=== PATIENT | male | born 2000 | race Caucasian/White ===

== ENCOUNTER 2021-11-03 10:27 | Emergency (ER) | payer OTHER, SELFPAY ==
[2021-11-03 10:37] VITALS: BP 113/73; PULSE 79; TEMP 37; O2SAT 98; BMI 25.7
--- NOTE | 2021-11-03 12:00 | CRLHL7_ITS ---
For Patients: As a result of the Century Cures Act, medical imaging exams and procedure reports are released immediately into your electronic medical record. You may view this report before your referring provider. If you have questions, please contact your health care provider. Indication: Left testicular pain and swelling. Palpable abnormality on the left. Technique: Sonography of the scrotum and its contents was performed. Doppler was also performed. Comparison: There are no prior studies for comparison Findings: The right testis measures 4.5 x 2.0 x 3.1 centimeters. The left testis measures 4.5 x 2.0 x 2.8 centimeters. No testicular mass. Normal Doppler flow involving both testes without evidence of hyperemia or torsion. There are 2 small epididymal head cysts on the right. There is a 4 millimeter and a 6 millimeter epididymal head cyst. The left epididymis is hypervascular and enlarged and heterogeneous. There may be a discrete focal mass at the epididymal head measuring 9 x 8 x 10 millimeters. I favor that all of these findings are due to significant epididymitis including the masslike area. There is no hydrocele or varicocele or definite scrotal abscess Recommend that the patient return in no greater than 14 days after treatment for presumptive epididymitis to ensure that the left epididymis returns to normal appearance Impression: 1. There are findings of left epididymitis. An masslike heterogeneous area is noted at the head of the epididymis which I favor is focal epididymitis rather than a true mass. A follow-up scan in 10 days to 2 weeks is advised to reassess the epididymis after treatment. 2. The testes appear normal. No testicular mass. No evidence of torsion. Dictated by Long Brunson MD @ 11/03/2021 1:29:58 PM (Electronically Signed)
--- NOTE | 2021-11-03 12:17 | ED.MALEGU ---
HPI - Male Genitourinary General Date Seen: 11/03/21 Chief complaint: Skin/Abscess/Foreign Body Stated complaint: Testicular lump Time Seen by Provider: 11/03/21 11:01 Source: patient and RN notes reviewed Mode of arrival: ambulatory Limitations: no limitations History of Present Illness HPI Narrative: This 21-year-old male is coming in with left testicular pain and swelling. He started noting symptoms at work yesterday. He denies any fevers or chills, has not tried any Tylenol or ibuprofen. He is here with his significant other and when asked about any history or concern of STIs he states he just wants to figure this out. Denies any urinary symptoms, no penile drainage. No associated abdominal pain, no nausea or vomiting, no change in bowel habits. He has never had anything like this before. He states he is up-to-date on his childhood immunizations. There is no inguinal pain with this, pain does not radiate anywhere. MD Complaint: testicle pain and testicle swelling Onset (ago): day(s) Duration: constant and progressively worsening Location: left testicle Severity: severe Related Data Sexually active: Yes Previous Rx's Medication Instructions Recorded doxycycline monohydrate 100 mg 100 mg PO BID #20 cap 11/03/21 capsule Allergies Allergy/AdvReac Type Severity Reaction Status Date / Time No Known Drug Allergies Allergy Verified 11/03/21 10:37 Review of Systems Status of ROS: Reports: 6 or more systems reviewed and unremarkable except as noted in History and below Exam Const: Vital Signs, click to edit/add: Vital Signs - 24 hr 11/03/21 10:37 Temperature 98.6 F Pulse Rate [Right Pulse Oximeter] 79 Blood Pressure [Ri ght Upper Arm] 113/73 Pulse Oximetry 98 Documenting provider has reviewed patient's vital signs: yes Common normals: no apparent distress, oriented x3, no limitations, healthy appearing and alert General appearance: cooperative and comfortable (Until I examined his left testicle which is quite painful for him) Nutritional appearance: thin HENMT: Common normals: normocephalic, head/scalp atraumatic and hearing grossly normal bilaterally Head and scalp: normocephalic and atraumatic Eye: Common normals: PERRL, EOMs intact bilaterally, conjunctivae normal and no scleral icterus Conjunctiva: conjunctiva(e) normal Pupil: PERRL Resp: Common normals: normal respiratory effort, no retractions, no use of accessory muscles and clear to auscultation bilaterally Auscultation: clear to auscultation bilaterally Cardio: Common normals: regular rate, regular rhythm, S1 normal heart sound, S2 normal heart sound, no gallops, no clicks and no murmurs Rate: regular rate Rhythm: regular rhythm Heart sounds: S1 normal and S2 normal GI: Common normals: Normal to inspection, nondistended, normoactive bowel sounds present, soft to palpation, non-tender, no hepatosplenomegaly and no masses Palpation: soft and no hepatosplenomegaly : Penis: normal penis and circumcised Meatus: meatus normal Scrotum: testes descended bilaterally Testes: testicular lie normal, testicular swelling (Left side with swelling along epididymis) and testicular tenderness (Seems to be the epididymis) Testicular tenderness laterality: left Neuro: Common normals: oriented x3 and gait normal Sensorium/orientation: alert Speech: speech normal Course Course Hospital Course: We are going to give the patient IM Toradol for some pain management. I will order a scrotal ultrasound, we will get a urinalysis as well as a urine GC and chlamydia. Will be getting a CBC and basic metabolic panel, C-reactive protein. Unfortunately due to the volume and acuity in the ER, he will have to go back out to the lobby and we will attempt to expedite this process but there are no rooms for him back in the ER. He does understand that and agrees with plan as outlined. This clinically seems like epididymitis in the testicle itself does not seem to be affected but we will get a scrotal ultrasound to fully differentiate. Reevaluation(s) Reevaluation #1: Patient was able to provide urine specimen(s) just now. Have reviewed with him that the ultrasound is consistent with epididymitis and went over etiologies of this. We will be giving him 500 mg IM Rocephin and discharged on oral doxycycline. Have reviewed with him that the radiologist did recommend [place] ultrasound of the scrotum to ensure resolution of the epididymal findings in 2 weeks time. Questions were answered. Time: 14:33 Vital Signs Vital signs: Initial Vital Signs Temperature 98.6 F 11/03/21 10:37 Temperature Source Temporal Artery Scan 11/03/21 10:37 Pulse Rate 79 11/03/21 10:37 Pulse Rhythm 11/03/21 10:37 Blood Pressure 113/73 11/03/21 10:37 Blood Pressure Mean 86 11/03/21 10:37 Blood Pressure Position Sitting 11/03/21 10:37 Pulse Oximetry 98 11/03/21 10:37 Oxygen Delivery Method 11/03/21 10:37 Vital Signs Temperature 98.6 F 11/03/21 10:37 Pulse Rate 79 11/03/21 10:37 Blood Pressure 113/73 11/03/21 10:37 Pulse Oximetry 98 11/03/21 10:37 Temperature 98.6 F 11/03/21 10:37 Pulse Rate 79 11/03/21 10:37 Blood Pressure 113/73 11/03/21 10:37 Pulse Oximetry 98 11/03/21 10:37 MDM - Male Genitourinary Lab Data Attestation: I reviewed the patient's lab results. Lab results narrative: Awaiting urine tests, urine GC and chlamydia not likely to be back in a reasonable timeframe and will allow patient discharged on appropriate treatment. Labs: Lab Results 11/03/21 11/03/21 Range/Units 12:25 12:25 WBC 9.00 (4.50-11.00) K/uL RBC 5.17 (4.30-5.90) m/uL Hgb 14.8 (13.5-17.5) gm/dL Hct 42.7 (37.0-53.0) % MCV 83 (80-100) fL MCH 29 (26-34) pg MCHC 35 (32-36) gm/dL RDW Coeff of Alix 12.2 (11.5-15.5) % Plt Count 162 (140-440) K/uL Neut % (Auto) 66.2 (42.0-72.0) % Lymph % (Auto) 16.7 L (20-44) % Archer % (Auto) 10.4 (0.0-11.0) % Eos % (Auto) 6.2 (0.0-7.0) % Baso % (Auto) 0.4 (0.0-3.0) % Neut # (Auto) 5.95 (1.7-7.0) K/uL Lymph # (Auto) 1.50 (0.90-2.90) K/uL Archer # (Auto) 0.90 (0.00-0.90) K/UL Eos # (Auto) 0.56 H (0.00-0.50) K/uL Baso # (Auto) 0.04 (0.00-0.30) K/uL Abs Immat Gran (auto) 0.01 (0.00-0.30) K/uL Sodium 137 (135-149) mmol/L Potassium 4.2 (3.6-5.1) mmol/L Chloride 102 (96-114) mmol/L Carbon Dioxide 29 (20-32) mmol/L BUN 15 (5-24) mg/dL Creatinine 1.1 (0.5-1.5) mg/dL Estimated Creat Clear 124.55 Estimated GFR 99 ml/min Glucose 108 (60-115) mg/dL Calcium 9.4 (8.4-10.6) mg/dL C-Reactive Protein < 0.5 L (0.5-1.0) mg/dL Imaging Data Scrotal ultrasound: Attestation: I have reviewed the pertinent imaging results. Radiologist's impression: Patient: PROMISE FAUST Facility:?[facility] Patient ID:?[id number] Site Patient ID:?[id number]. Site :?[id number] Study:?US Testicle -11/03/2021 1:04:12 PM Ordering Physician:Dong Monaco Final Report: Indication: Left testicular pain and swelling. Palpable abnormality on the left. Technique: Sonography of the scrotum and its contents was performed. Doppler was also performed. Comparison: There are no prior studies for comparison Findings: The right testis measures 4.5 x 2.0 x 3.1 centimeters. The left testis measures 4.5 x 2.0 x 2.8 centimeters. No testicular mass. Normal Doppler flow involving both testes without evidence of hyperemia or torsion. There are 2 small epididymal head cysts on the right. There is a 4 millimeter and a 6 millimeter epididymal head cyst. The left epididymis is hypervascular and enlarged and heterogeneous. There may be a discrete focal mass at the epididymal head measuring 9 x 8 x 10 millimeters. I favor that all of these findings are due to significant epididymitis including the masslike area. There is no hydrocele or varicocele or definite scrotal abscess Recommend that the patient return in no greater than 14 days after treatment for presumptive epididymitis to ensure that the left epididymis returns to normal appearance Impression: 1. There are findings of left epididymitis. An masslike heterogeneous area is noted at the head of the epididymis which I favor is focal epididymitis rather than a true mass. A follow-up scan in 10 days to 2 weeks is advised to reassess the epididymis after treatment. 2. The testes appear normal. No testicular mass. No evidence of torsion. Dictated by Long Brunson MD @ 11/03/2021 1:29:58 PM (Electronic Signature) Critical Care Time Critical Care Time Critical Care Time: No Discharge Plan Discharge Clinical Impression: Acute epididymitis Patient Disposition: Home, Self-Care Condition: Stable Instructions: Epididymitis (ED) Additional Instructions: Start oral antibiotics today, please get them from the pharmacy and take as prescribed. Do need to complete them. Recommend scrotal support with firmer fitting underwear as needed. Tylenol and/or ibuprofen as needed for pain management, follow bottle directions for dosing. It is recommended that you have a repeat scrotal ultrasound in 2 weeks time for the radiologist to ensure resolution of the left epididymis swelling. Note provided to be off work for the next 2 days for your comfort. Activity Level: Activity as Tolerated Discharge Diet: Regular Prescriptions: New doxycycline monohydrate 100 mg capsule 100 mg PO BID Qty: 20 0RF Stand Alone Forms: [employer] Info Instructions
[2021-11-03] MEDS: KETOROLAC 30 MG/ML inj IM (12:23)
--- NOTE | 2021-11-03 12:23 | ED.NURSE ---
Toradol per order to right deltoid. Lab with patient for draw. Patient unable to provide urine sample yet. Patient to u/s after lab draw.
[2021-11-03 12:33] LABS: Basophils Absolute Auto 0.04 K/uL (0.00-0.30); Basophils Percent Auto 0.4 % (0.0-3.0); Eosinophils Absolute Auto 0.56 K/uL (0.00-0.50); Eosinophils Percent Auto 6.2 % (0.0-7.0); Hematocrit 42.7 % (37.0-53.0); Hemoglobin* 14.8 gm/dL (13.5-17.5); Immature Granulocytes Abs Auto 0.01 K/uL (0.00-0.30); Lymphocytes Percent Auto 16.7 % (20-44); Mean Corpuscular HGB Conc 35 gm/dL (32-36); Mean Corpuscular Hemoglobin 29 pg (26-34); Mean Corpuscular Volume 83 fL (80-100); Monocytes Percent Auto 10.4 % (0.0-11.0); Neutrophils Absolute Auto 5.95 K/uL (1.7-7.0); Neutrophils Percent Auto 66.2 % (42.0-72.0); Platelet Count* 162 K/uL (140-440); RDW Coefficient of Variation % 12.2 % (11.5-15.5); Red Blood Count 5.17 m/uL (4.30-5.90)
[2021-11-03 12:43] LABS: Slide Review Reflex No
[2021-11-03 12:53] LABS: Chloride* 102 mmol/L (96-114)
[2021-11-03 12:54] LABS: Potassium* 4.2 mmol/L (3.6-5.1); Sodium* 137 mmol/L (135-149)
[2021-11-03 12:56] LABS: Creatinine* 1.1 mg/dL (0.5-1.5); Est. Creatinine Clearance* 124.55; Estimated Glomerular Filt Rate 99 ml/min
[2021-11-03 12:57] LABS: Blood Urea Nitrogen* 15 mg/dL (5-24); Carbon Dioxide* 29 mmol/L (20-32); Glucose* 108 mg/dL (60-115)
[2021-11-03 12:58] LABS: Calcium* 9.4 mg/dL (8.4-10.6)
[2021-11-03 13:10] LABS: C Reactive Protein* < 0.5 mg/dL (0.5-1.0)
[2021-11-03] MEDS: cefTRIAXone 500 MG VIAL IM (14:51)
[2021-11-03] MEDS: LIDOCAINE 1% 5 ml (pf) 5 ML VIAL 1 ML IM (14:51)
[2021-11-03 15:20] LABS: Appearance Urine Cloudy (Clear); Bilirubin Urine Negative (Negative); Blood Urine Negative (Negative); Color Urine Yellow (Yellow); Glucose Urine Negative (Negative); Ketones Urine Negative (Negative); Leukocyte Esterase Urine 1+ (Negative); Nitrite Urine Negative (Negative); Protein Urine Negative (Negative); Urobilinogen Urine 0.2 (0.2-1.0); pH Urine 7.5 (5.0-8.5)
[2021-11-03 17:03] LABS: Chlamydia DNA Amplified* DETECTED (No Detected); GC DNA Amplified* NOT DETECTED (No Detected)
== END 2021-11-03 15:00 | disposition home or self-care (01) ==
PROVIDERS: Emergency Provider Family Medicine
DX: N45.1 Epididymitis (principal)
CPT/HCPCS: 36415; 76870; 80048; 81001; 85025; 86140; 87086; 87491; 87591; 93976; 96372; 99284; J0696; J1885

== ENCOUNTER 2023-02-21 00:45 | Emergency (ER) | payer OTHER, SELFPAY ==
[2023-02-21 00:50] VITALS: BP 125/76; PULSE 80; RESP 18; TEMP 36.8; O2SAT 99; BMI 24.6
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
[2023-02-21] MEDS: PIPERACILLIN/TAZOBACTAM 3.375 GM in 0.9 % SODIUM CHLORIDE Mini-bag 100 ML IVPB (01:01)
[2023-02-21 01:31] VITALS: BP 118/74; PULSE 79; RESP 18; TEMP 36.7; O2SAT 99
[2023-02-21 01:36] VITALS: BP 118/74; PULSE 79; RESP 18; TEMP 36.7
== END 2023-02-21 01:37 | disposition home or self-care (01) ==
PROVIDERS: Emergency Provider Family Medicine
DX: L03.113 Cellulitis of right upper limb (principal)
CPT/HCPCS: 96365; 99283; J2543

== ENCOUNTER 2023-03-29 18:30 | Emergency (ER) | payer OTHER, SELFPAY ==
--- NOTE | 2023-03-29 18:45 | CRLHL7_ITS ---
For Patients: As a result of the Century Cures Act, medical imaging exams and procedure reports are released immediately into your electronic medical record. You may view this report before your referring provider. If you have questions, please contact your health care provider. INDICATION: Blurred vision. TECHNIQUE: CT images foramen magnum to vertex were obtained without contrast. Multiplanar reconstructions. FINDINGS: No evidence of acute intracranial hemorrhage or mass effect. Preservation of lara-white interface no evidence of focal infarct or mass effect no abnormal extra cerebral fluid collections. No posterior fossa hemorrhage or mass effect. The orbits, suprasellar cistern calvarium and skull base are unremarkable. IMPRESSION: Negative CT brain without contrast. No evidence of acute intracranial abnormality. Please note that all CT scans at this facility use dose modulation, iterative reconstruction, and/or weight-based dosing when appropriate to reduce radiation dose to as low as reasonably achievable. Dictated by Jeremy Judd MD @ 03/29/2023 7:27:43 PM (Electronically Signed)
[2023-03-29 18:46] VITALS: BP 135/76; PULSE 101; RESP 16; TEMP 36.4; O2SAT 99; BMI 25.6
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
[2023-03-29 19:16] LABS: Basophils Absolute Auto 0.06 K/uL (0.00-0.30); Basophils Percent Auto 0.6 % (0.0-3.0); Eosinophils Absolute Auto 0.18 K/uL (0.00-0.50); Eosinophils Percent Auto 1.8 % (0.0-7.0); Hemoglobin* 13.8 gm/dL (13.5-17.5); Immature Granulocytes Abs Auto 0.01 K/uL (0.00-0.30); Immature Granulocytes Pct Auto 0.1 %; Lymphocytes Percent Auto 18.8 % (20-44); Mean Corpuscular HGB Conc 35 gm/dL (32-36); Mean Corpuscular Hemoglobin 28 pg (26-34); Mean Corpuscular Volume 81 fL (80-100); Monocytes Percent Auto 8.6 % (0.0-11.0); Neutrophils Absolute Auto 6.99 K/uL (1.7-7.0); Neutrophils Percent Auto 70.1 % (42.0-72.0); Platelet Count* 182 K/uL (140-440); Red Blood Count 4.94 m/uL (4.30-5.90); White Blood Count* 9.97 K/uL (4.50-11.00)
[2023-03-29 19:18] LABS: Slide Review Reflex No
[2023-03-29 19:28] LABS: Chloride* 103 mmol/L (96-114); Potassium* 4.1 mmol/L (3.6-5.1); Sodium* 139 mmol/L (135-149)
[2023-03-29 19:31] LABS: Anion Gap 10 mEq/L (7-15); Blood Urea Nitrogen* 16 mg/dL (5-24); Carbon Dioxide* 26 mmol/L (20-32); Est. Creatinine Clearance* 139.66; Estimated Glomerular Filt Rate 110 ml/min
[2023-03-29 19:32] LABS: Calcium* 9.7 mg/dL (8.4-10.6); Ethanol* < 0.01 % (0.01-0.03); Glucose* 95 mg/dL (60-115)
[2023-03-29 19:42] LABS: Appearance Urine Clear (Clear); Bilirubin Urine Negative (Negative); Blood Urine Negative (Negative); Color Urine Yellow (Yellow); Glucose Urine Negative (Negative); Ketones Urine Negative (Negative); Leukocyte Esterase Urine Negative (Negative); Nitrite Urine Negative (Negative); Protein Urine Negative (Negative); Urobilinogen Urine 0.2 (0.2-1.0)
[2023-03-29 19:52] LABS: Amphetamine Screen Urine Negative (Negative); Barbiturate Screen Urine Negative (Negative); Benzodiazepines Screen Urine Negative (Negative); Cannabinoid Screen Urine Negative (Negative); Cocaine Screen Urine Negative (Negative); Methadone Screen Urine Negative (Negative); Methamphetamines Screen Urine Negative (Negative); Opiate Screen Urine Negative (Negative); Oxycodone Screen Urine Negative (Negative); Phencyclidine Screen Urine Negative (Negative); Tricyclic Antidepressant Urine Negative (Negative)
[2023-03-29 19:53] LABS: RBC Urine 0-2 (0-2); Squamous Epithelial Cell Urine Few (None-Few); WBC Urine 0-2 (0-5)
== END 2023-03-29 20:43 | disposition home or self-care (01) ==
PROVIDERS: Emergency Provider Family Medicine
DX: S09.90XA Unspecified injury of head, initial encounter (principal); F07.81 Postconcussional syndrome; W22.8XXA Striking against or struck by other objects, initial encounter
CPT/HCPCS: 36415; 70450; 80048; 80306; 81001; 82077; 85025; 95992; 99284

== ENCOUNTER 2023-04-05 23:00 | Emergency (ER) | payer OTHER, SELFPAY ==
[2023-04-05 23:15] VITALS: BP 114/76; PULSE 84; RESP 16; TEMP 36.6; O2SAT 97; BMI 25.6
--- NOTE | 2023-04-06 00:14 | ED.GENADULT ---
HPI - General Adult General Chief complaint: Unspecified Complaint, Adult Stated complaint: Trouble Breathing Time Seen by Provider: 04/06/23 00:02 Source: patient Mode of arrival: ambulatory Limitations: no limitations History of Present Illness HPI narrative: 22-year-old male with no chronic medical problems presents to the emergency department with generalized body aches for the past 12-14 hours and onset of achy pain in his chest that radiated to his left arm and shoulder while driving today. It is intermittent, worse with taking a deep breath. Nonexertional. No palpitations, dizziness, syncope or other related symptoms with this. He is not truly short of breath but rather feels as though he has increased pain with taking a deep breath. No history of pneumothorax, no trauma or injury. There is no cough or hemoptysis. He is not running a fever he did not try taking any Tylenol, ibuprofen or any other interventions to help with his pain. No known exposures to any illness, no pertinent travel. Past medical history benign per his report no major long-term health problems. No long-term medications, nonsmoker. Denies any illicit drugs. ROS notable for the generalized and chest symptoms as described above, otherwise denies times 12 systems. Related Data Home Medications Medication Instructions Recorded Confirmed No Known Home Medications 03/29/23 03/29/23 Allergies Allergy/AdvReac Type Severity Reaction Status Date / Time No Known Drug Allergies Allergy Verified 02/21/23 00:53 [facility] Medical History No significant past medical history Surgical History No significant past surgical history Social History Smoking Status: Never smoker Second hand tobacco smoke exposure: No How often do you have a drink containing alcohol: never How often do you have six or more drinks on one occasion: Never AUDIT-C Alcohol total score: 0 Non-prescribed substance use: denies use Exam Const: Vital Signs, click to edit/add: Vital Signs - 24 hr 04/05/23 23:15 Temperature 97.9 F Pulse Rate [Pulse Oximeter] 84 Respiratory Rate 16 Blood Pressure [Ri ght Upper Arm] 114/76 Pulse Oximetry 97 Oxygen Delivery Me thod Room Air Documenting provider has reviewed patient's vital signs: yes Common normals: no apparent distress and alert General appearance: cooperative Other: Mildly anxious but certainly in no visible respiratory distress. HENMT: Common normals: normocephalic and head/scalp atraumatic Head and scalp: normocephalic and atraumatic Face and sinus: normal facial exam Mouth: oral and palatal mucosa normal Throat: posterior oropharynx normal Eye: Common normals: conjunctivae normal General eye: normal appearance of both eyes Conjunctiva: conjunctiva(e) normal Neck & C-Spine: Common normals: full ROM and no lymphadenopathy Resp: Common normals: normal respiratory effort, no use of accessory muscles and clear to auscultation bilaterally Effort & inspection: able to speak in complete sentences and symmetric chest movement Auscultation: clear to auscultation bilaterally Other: Mild tenderness to palpation of right sternal costal joints. Does reproduce pain he describes Cardio: Common normals: regular rate, regular rhythm, S1 normal heart sound, S2 normal heart sound and no murmurs Rate: regular rate Rhythm: regular rhythm Heart sounds: S1 normal and S2 normal GI: Common normals: soft to palpation, non-tender and no masses Palpation: soft Extremity: Common normals: normal to inspection and no pedal edema Neuro: Sensorium/orientation: alert Speech: speech normal Motor exam: no movement abnormalities noted Psych: Appearance: grossly normal Attitude: withdrawn Insight: fair Judgement: fair Skin: Common normals: no rashes or lesions noted General skin exam: no rashes or lesions noted Course Course ED Course: generalized body aches with episode of chest tightness at rest, reproducible with palpation. No signs of any significant cardiopulmonary abnormality on exam or vital signs. Recommended EKG. Recommended viral swab to look for etiology of muscle aches, suspect influenza as we are having multiple cases Raynaud. Will give ibuprofen 800 mg p.o. x1 for symptomatic care while we await results. Reevaluation(s) Time of Reevaluation #1: 01:42 Reevaluation #1: Patient reports improvement in shoulder discomfort and chest discomfort on ibuprofen. Oxygen saturations have remained normal. Viral swabs reviewed and all normal. Suspect viral syndrome, discussed sensitivity of swabs in early phase of illness. Do not see any signs of severe cardiopulmonary disease do not recommend further workup at this time. Recommended symptomatic care with Tylenol and ibuprofen, watchful waiting. Work note given for today. Alarm symptoms reviewed would warrant ED presentation. He verbalized understanding and agreement Vital Signs Vital signs: Initial Vital Signs Temperature 97.9 F 04/05/23 23:15 Temperature Source Temporal Artery Scan 04/05/23 23:15 Pulse Rate 84 04/05/23 23:15 Pulse Rhythm Regular 04/05/23 23:15 Respiratory Rate 16 04/05/23 23:15 Blood Pressure 114/76 04/05/23 23:15 Blood Pressure Mean 88 04/05/23 23:15 Blood Pressure Position Sitting 04/05/23 23:15 Pulse Oximetry 97 04/05/23 23:15 Oxygen Delivery Method Room Air 04/05/23 23:15 Vital Signs Temperature 97.9 F 04/05/23 23:15 Pulse Rate 84 04/05/23 23:15 Respiratory Rate 16 04/05/23 23:15 Blood Pressure 114/76 04/05/23 23:15 Pulse Oximetry 97 04/05/23 23:15 Oxygen Delivery Method Room Air 04/05/23 23:15 Temperature 97.9 F 04/05/23 23:15 Pulse Rate 84 04/05/23 23:15 Respiratory Rate 16 04/05/23 23:15 Blood Pressure 114/76 04/05/23 23:15 Pulse Oximetry 97 04/05/23 23:15 Oxygen Delivery Method Room Air 04/05/23 23:15 Medications Administered Medications: Discontinued Medications Generic Name Dose Route Start Last Admin Trade Name Freq PRN Reason Stop Dose Admin Ibuprofen 800 mg 04/06/23 00:14 04/06/23 00:28 Ibuprofen 400 Mg Tablet PO 04/06/23 00:15 800 mg ONCE ONE Administration Medical Decision Making Lab Data Lab results reviewed: Yes I reviewed the patient's lab results Labs: Lab Results 04/06/23 Range/Units 00:14 SARS-CoV-2 (PCR) Negative SARS-CoV-2 (Negative) Influenza Type A (PCR) Negative PCR FLU A (Negative) Influenza Type B (PCR) Negative PCR FLU B (Negative) RSV (PCR) Negative PCR RSV (Negative) ECG Data Attestation: I personally reviewed and interpreted this ECG as follows: Prior ECG tracings: not available for review Interpretation: Normal sinus rhythm, rate 73. Normal intervals, normal axis. No significant ST or T-wave abnormalities. Normal R-wave progression. Abnormal EKG. Discharge Plan Discharge Clinical Impression: Myalgia Patient Disposition: Home w/ Parent or Adult Condition: Improved Instructions: Viral Syndrome (ED) Additional Instructions: as we discussed, your chest pain and shortness of breath do not seem to be related to any dangerous problems with her heart or lungs. Your EKG looks normal. Your oxygen levels and breathing rate and physical exam are all reassuring. I suspect that your body aches and discomfort are related to a viral illness, likely influenza. Unfortunately, the swabs are not perfectly accurate and can miss early cases. I recommend Tylenol 1000 mg every 6 hours as needed for discomfort and or ibuprofen 600 mg every 6 hours. you may take ibuprofen again at 7:00 a.m.. He may take Tylenol as soon as you get home. You are medically cleared to return to work Tomorrow. Activity Level: Activity as Tolerated Discharge Diet: Regular Prescriptions: No Action No Known Home Medications Follow Up/Referrals: Provider,Not a Local [Primary Care Provider] - Stand Alone Forms: [employer] Info Instructions
[2023-04-06] MEDS: IBUPROFEN 400 MG TABLET 800 MG PO (00:28)
[2023-04-06 01:12] LABS: PCR FLU A Negative PCR FLU A (Negative); PCR FLU B Negative PCR FLU B (Negative); PCR RSV Negative PCR RSV (Negative)
[2023-04-06 01:27] LABS: SARS PCR* Negative SARS-CoV-2 (Negative)
== END 2023-04-06 01:51 | disposition home or self-care (01) ==
PROVIDERS: Emergency Provider Family Medicine
DX: M79.10 Myalgia, unspecified site (principal)
CPT/HCPCS: 87631; 99283; 99284; A9270

== ENCOUNTER 2023-04-19 17:04 | Observation (INO) | payer BC, SELFPAY ==
[2023-04-19] VITALS (13 sets, daily range): BP systolic 111–118; BP diastolic 50–73; PULSE 74–107; RESP 16; TEMP 36.5–37.4; O2SAT 94–98; BMI 25.0; BMI 24.4
--- NOTE | 2023-04-19 17:44 | CRLHL7_ITS ---
For Patients: As a result of the Century Cures Act, medical imaging exams and procedure reports are released immediately into your electronic medical record. You may view this report before your referring provider. If you have questions, please contact your health care provider. INDICATION: Pharyngitis, muffled voice. TECHNIQUE: CT soft tissue of the neck was acquired with 90 cc Isovue 370 contrast. COMPARISON: None available. FINDINGS: Skull base: Unremarkable. Pharynx/Larynx/Trachea: Epiglottis is normal. Airway is patent. Enlargement of bilateral palatine tonsils, right greater left. There is an intra tonsillar hypodense rim enhancing collection measuring greater than simple fluid attenuation within the right palatine tonsil. This collection measures 1.8 x 0.8 x 1.2 cm (series 3, image 37). No peritonsillar fluid collection is seen. Salivary glands: Unremarkable. Thyroid gland: Unremarkable. No significant nodules. Lymph nodes: Scattered subcentimeter bilateral cervical lymph nodes. Vessels: Unremarkable for age. Bones: Unremarkable for age. Lung apices: Unremarkable. IMPRESSION: Enlarged bilateral palatine tonsils with findings of right intra tonsillar phlegmon/developing abscess measuring up to 1.8 cm. Please note that all CT scans at this facility use dose modulation, iterative reconstruction, and/or weight-based dosing when appropriate to reduce radiation dose to as low as reasonably achievable. Dictated by Liss Lopez MD @ 04/19/2023 7:38:38 PM (Electronically Signed)
--- NOTE | 2023-04-19 17:50 | ED.GENADULT ---
HPI - General Adult General Date Seen: 04/19/23 Chief complaint: Sore Throat Stated complaint: Throat problems Time Seen by Provider: 04/19/23 17:10 History of Present Illness HPI narrative: This is a 22-year-old generally healthy male accompanied to the ER today by his girlfriend for evaluation of sore throat. He was seen here in the ER on 04/06 for body aches, thought to be a viral illness and got better from that. About a week ago, on roughly April 12 or he developed symptoms of sore throat. He has had sore throat since then getting steadily worse over time. He has also had fatigue and body aches. No cough. No stuffy nose. No trouble breathing. Because of pain in his throat he is starting to develop a muffled voice. He has had difficulty and pain with swallowing so has not been eating. He has not been drinking very much either. He has not had any fever. Last night his girlfriend was looking at his tonsil that and noticed that there was ?white pus? coming out of them and also noted a little bit of bleeding from both tonsils. They made appointment to see the [facility]. They went to their appointment today. After seeing the provider, they were sent here to the ER today to have a neck CT scan with concern for possible abscess (I think a peritonsillar abscess? , but patient and his girlfriend are not sure). Strep PCR from [facility] was negative. No other tests or x-rays were performed. Related Data Home Medications Medication Instructions Recorded Confirmed No Known Home Medications 03/29/23 04/19/23 Allergies Allergy/AdvReac Type Severity Reaction Status Date / Time No Known Drug Allergies Allergy Verified 04/19/23 18:27 [facility] Medical History No significant past medical history Surgical History No significant past surgical history Social History (Updated 04/19/23 @ 21:49 by Caden Cortés MD) Narrative: He presents with his girlfriend. He does not smoke. He occasionally drinks alcohol, less than once a week, no recreational drug use. 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 What is your current living situation?: I presently have a place to live Problems where you live: no known problems Problems where you live details: none In the past 12 months, utilities in danger of being shut off: no In past 12 months, lack of transportation kept you from medical appts, meetings, work, or getting things needed for daily living: no In the past 12 mos, have been you worried that your food would run out before you had money to buy more?: never true In the past 12 mos, the food you bought just didn't last and you didn't have money to buy more?: never true Highest level of school completed/degree received: high school graduate Smoking Status: Never smoker Second hand tobacco smoke exposure: No How often do you have a drink containing alcohol: monthly or less Alcohol type: beer How many standard drinks containing alcohol do you have on a typical day: 7 to 9 How often do you have six or more drinks on one occasion: Less than monthly AUDIT-C Alcohol total score: 5 Non-prescribed substance use: denies use Caffeine: Yes (energy drink, pop) How often does anyone, including family, friends and others, physically hurt you: never How often does anyone, including family, friends and others, insult or talk down to you: never How often does anyone, including family, friends and others, threaten you with harm: never How often does anyone, including family, friends and others, scream or curse at you: never service: No Exam Narrative: Exam Narrative: Constitutional: Appears well-developed and well-nourished. Alert. Conversant but his voice is somewhat muffled. He relies on his girlfriend provide a lot of his history.. Non toxic. HENT: Head: Atraumatic. Nose: Nose normal. Mouth/Throat: Oral mucosa is clear and moist. no trismus. Pharynx is beefy and erythematous bilaterally. Both tonsils are enlarged and both tonsils appear to be symmetrically pushing on the uvula. I do not see any clear midline shift of the uvula or any definitive unilateral peritonsillar abscess. Both tonsils appear to have erythema, exudates, but no active bleeding.. Eyes: Conjunctivae normal. EOM normal. Pupils equal, round, and reactive to light. No scleral icterus. Neck: Normal range of motion. Neck supple. No tracheal deviation present. Cardiovascular: Normal rate, regular rhythm. No gallop. No friction rub. No murmur heard. Symmetric radial artery pulses Pulmonary/Chest: Effort normal. No stridor. No respiratory distress. No wheezes. No rales. No rhonchi . No tenderness. Abdominal: Soft. Bowel sounds normal. No distension. No mass. No tenderness. No rebound. No guarding. No definite palpable splenomegaly. Musculoskeletal: RUE: Normal range of motion. No tenderness. No deformity LUE: Normal range of motion. No tenderness. No deformity RLE: Normal range of motion. No edema. No tenderness. No deformity LLE: Normal range of motion. No edema. No tenderness. No deformity Lymph: Bilateral posterior and anterior cervical adenopathy. Neurological: Alert and oriented to person, place, and time. Normal strength. CN II-VII intact. No sensory deficit. GCS eye subscore is 4. GCS verbal subscore is 5. GCS motor subscore is 6. Normal coordination Skin: Skin is warm and dry. No rash noted. No pallor. Normal capillary refill. Psychiatric: Normal mood. Normal affect. Const: Vital Signs, click to edit/add: Vital Signs - 24 hr 04/19/23 17:09 04/19/23 19:07 04/19/23 19:15 Temperature 99.3 F Pulse Rate 81 78 Pulse Rate [Right Pulse Oximeter] 107 H Respiratory Rate 16 Blood Pressure Blood Pressure [Ri ght Upper Arm] 118/73 Pulse Oximetry 97 97 [facility] 04/19/23 19:30 04/19/23 19:45 04/19/23 19:57 Temperature Pulse Rate 74 90 Pulse Rate [Right Pulse Oximeter] 90 Respiratory Rate 16 Blood Pressure Blood Pressure [Ri ght Upper Arm] 112/50 L Pulse Oximetry 96 98 97 [facility] 04/19/23 19:57 04/19/23 20:00 04/19/23 20:15 Temperature Pulse Rate 86 91 85 Pulse Rate [Right Pulse Oximeter] Respiratory Rate Blood Pressure 112/50 L Blood Pressure [Ri ght Upper Arm] Pulse Oximetry 97 98 97 [facility] 04/19/23 20:32 04/19/23 20:45 04/19/23 21:00 Temperature Pulse Rate 88 95 97 Pulse Rate [Right Pulse Oximeter] Respiratory Rate Blood Pressure Blood Pressure [Ri ght Upper Arm] Pulse Oximetry 97 94 96 Oxygen Delivery Me thod Course Vital Signs Vital signs: Initial Vital Signs Respiratory Effort Normal, Spontaneous 04/19/23 17:06 Respiratory Depth Normal 04/19/23 17:06 Respiratory Pattern Normal 04/19/23 17:06 Vital Signs Temperature 99.3 F 04/19/23 17:09 Pulse Rate 107 H 04/19/23 17:09 Respiratory Rate 16 04/19/23 17:09 Blood Pressure 118/73 04/19/23 17:09 Pulse Oximetry 97 04/19/23 17:09 Oxygen Delivery Method Room Air 04/19/23 17:09 Temperature 97.7 F 04/19/23 23:55 Pulse Rate 90 04/19/23 23:55 Respiratory Rate 16 04/19/23 23:55 Blood Pressure 113/55 L 04/19/23 23:55 Pulse Oximetry 97 04/19/23 23:55 Oxygen Delivery Method Room Air 04/19/23 23:55 Medications Administered Medications: Generic Name Dose Route Start Last Admin Trade Name Freq PRN Reason Stop Dose Admin Lactated Ringer's 1,000 mls @ 125 mls/hr 04/19/23 21:25 04/19/23 22:18 Lactated Ringers 1000 Ml IV 125 mls/hr .Q8H NADIR Administration Sodium Chloride 5 ml 04/19/23 22:19 04/19/23 22:20 Sodium Chloride 0.9 % (Flush) 10 Ml Syringe IVF 5 ml .FLUSH PRN Administration Discontinued Medications Generic Name Dose Route Start Last Admin Trade Name Freq PRN Reason Stop Dose Admin Dexamethasone 10 mg 04/19/23 17:44 04/19/23 18:22 Dexamethasone 4 Mg/Ml Vial IV 04/19/23 17:45 10 mg ONCE ONE Administration Sodium Chloride 1,000 mls @ 1,000 mls/hr 04/19/23 17:46 04/19/23 19:19 0.9 % Sodium Chloride 1000 Ml IV 04/19/23 18:45 Infused .Q1H NADIR Infusion Ampicillin Sodium/Sulbactam 100 mls @ 200 mls/hr 04/19/23 19:38 04/19/23 20:30 Sodium 3 gm/ Sodium Chloride IVPB 04/19/23 19:39 Infused ONCE ONE Infusion Ketorolac Tromethamine 15 mg 04/19/23 17:44 04/19/23 18:22 Ketorolac 15 Mg/Ml Inj IVP 04/19/23 17:45 15 mg ONCE ONE Administration Medical Decision Making MDM Narrative Medical decision making narrative: 22-year-old previously healthy male presenting to the ER today from [facility] for evaluation of pharyngitis and possible suspicion for peritonsillar abscess. On my exam he does have beefy erythema of both tonsils and both tonsils seem to be compressing the uvula but no definite asymmetry. Although tonsils are quite swollen and he has a slightly muffled voice, airways patent. No stridor. No trismus. No concern for impending airway collapse. Laboratory workup shows leukocytosis. CT scan of his neck is obtained and does show a possible small phlegmon or early abscess within the right tonsil. Started on IV steroids and IV Unasyn. Discussed with ENT, who recommends we admit for IV antibiotics and steroids. ENT will consult in the morning. If not improving, made perform I and D. He subsequently the patient's labs also came back positive for mono. LFTs also mildly abnormal likely consistent with mononucleosis syndrome. Unclear if mono may have initially triggered the pharyngitis which is now bacterially superinfected. At this point he had already CV is 1st dose of Unasyn. He would be at risk for developing an ampicillin rash with mono. Discussed with admitting hospitalist, Dr. Cortés, who will change future antibiotic therapy, likely to clindamycin. Lab Data Labs: Lab Results 04/19/23 Range/Units 18:08 WBC 12.09 H (4.50-11.00) K/uL RBC 4.96 (4.30-5.90) m/uL Hgb 13.6 (13.5-17.5) gm/dL Hct 39.9 (37.0-53.0) % MCV 80 (80-100) fL MCH 27 (26-34) pg MCHC 34 (32-36) gm/dL RDW Coeff of Alix 12.3 (11.5-15.5) % Plt Count 204 (140-440) K/uL Neut % (Auto) 33.4 L (42.0-72.0) % Lymph % (Auto) 55.8 H (20-44) % Jones % (Auto) 10.2 (0.0-11.0) % Eos % (Auto) 0.3 (0.0-7.0) % Baso % (Auto) 0.2 (0.0-3.0) % Neut # (Auto) 4.00 (1.7-7.0) K/uL Lymph # (Auto) 6.70 H (0.90-2.90) K/uL Jones # (Auto) 1.20 H (0.00-0.90) K/UL Eos # (Auto) 0.00 (0.00-0.50) K/uL Baso # (Auto) 0.00 (0.00-0.30) K/uL Abs Immat Gran (auto) 0.00 (0.00-0.30) K/uL Imm/Tot Granulo (auto) 0.1 % Sodium 138 (135-149) mmol/L Potassium 4.0 (3.6-5.1) mmol/L Chloride 101 (96-114) mmol/L Carbon Dioxide 30 (20-32) mmol/L Anion Gap 7 (7-15) mEq/L BUN 15 (5-24) mg/dL Creatinine 0.9 (0.5-1.5) mg/dL Estimated Creat Clear 155.18 Estimated GFR 125 ml/min Glucose 104 (60-115) mg/dL Calcium 9.4 (8.4-10.6) mg/dL Total Bilirubin 0.6 (0.1-1.5) mg/dL AST 163 H (12-35) U/L ALT 291 H (4-50) U/L Alkaline Phosphatase 85 (40-150) U/L Total Protein 8.4 H (6.0-8.3) g/dL Albumin 4.8 (3.3-5.0) g/dL Monoscreen POSITIVE A (Negative) Imaging Data CT neck soft: Attestation: I have reviewed the pertinent imaging results. Radiologist's impression: IMPRESSION: Enlarged bilateral palatine tonsils with findings of right intra tonsillar phlegmon/developing abscess measuring up to 1.8 cm.
[2023-04-19 18:16] LABS: Basophils Percent Auto 0.2 % (0.0-3.0); Eosinophils Percent Auto 0.3 % (0.0-7.0); Hematocrit 39.9 % (37.0-53.0); Hemoglobin* 13.6 gm/dL (13.5-17.5); Immature Granulocytes Pct Auto 0.1 %; Lymphocytes Percent Auto 55.8 % (20-44); Mean Corpuscular HGB Conc 34 gm/dL (32-36); Mean Corpuscular Hemoglobin 27 pg (26-34); Mean Corpuscular Volume 80 fL (80-100); Monocytes Percent Auto 10.2 % (0.0-11.0); Neutrophils Percent Auto 33.4 % (42.0-72.0); Platelet Count* 204 K/uL (140-440); RDW Coefficient of Variation % 12.3 % (11.5-15.5); Red Blood Count 4.96 m/uL (4.30-5.90); White Blood Count* 12.09 K/uL (4.50-11.00)
--- OUTSIDE RECORDS SUMMARY | 2023-04-19 18:21 | XMS_ITS | Encounter Summary ---
Author Name Unknown Organization [facility] Address [address] [place] [address] Care Team Providers Care Nursing Home Director Name Role Phone Unavailable Primary Care Provider Unavailabl e Reason for Visit * Reason Comments Toe Injury Dropped cinder block on right toe causing injury Encounter Details Date Type Department Care Team (Late st Contact Info) Description 12/05/2022 3:04 PM CDT - 12/05/2022 4:05 PM CDT Emergency [facility] [address] [place] [phone] Stacie Oliver, CHUTE WORKER, C.N.P. [address] [place] [phone] Injury Toe Initial Right (Primary Dx); Fracture Great Toe Distal Phalanx Displaced Closed Initial Right Discharge Disposition: Home or Self Care Social History Tobacco Use Types Packs/Day Years Used Date Smoking Tobacco: Never Smokeless Tobacco: Never Tobacco Cessation:Counseling Given: Not Answered Alcohol Use Standard Drinks/Week Comments Not Currently 0 (1 standard drink = 0.6 oz pur e alcohol) Nutrition Answer Date Recorded Nutrition: EVOO Fat Source Unknown 12/05 Nutrition: Servings of Fruits/Vegetables per Day Not on file 12/05/2022 Dental Answer Date Recorded Dental: Regular Dentist Unknown 12/06/19 Sex and Gender Information Value Date Recorded Sex Assigned at Not on file Gender Identity Not on file Sexual Orientation Not on file documented as of this encounter Last Filed Vital Signs Vital Sign Reading Time Taken Comments Blood Pressure 106/68 12/05/2022 4:04 PM CDT Pulse 67 12/05/2022 4:04 PM CDT Temperature 36.5 ??C (97.7 ??F) 12/05/2022 4:04 PM CD T Respiratory Rate 18 12/05/2022 3:09 PM CDT Oxygen Saturation 99% 12/05/2022 4:04 PM CDT Inhaled Oxygen Concentration - - Weight 88.8 kg (195 lb 12.3 oz) 12/05/2022 3:07 PM CDT Height - - Body Mass Index - - documented in this encounter Discharge Instructions * Discharge Instructions* Stacie Oliver APRN, C.N.P., R.N. - 12/05/2022 3:56 PM CDT No broken bones on your x-ray, radiology read is pending I will call you if they see anything different. Part of your nail is coming off and will likely come all the way off sometime in the near future. In the meantime, recommend keeping it wrapped to help keep it protected. Also recommend stay off your feet as much as possible for the next couple of days to help with healing. Soak it in warm water when you get home to help clean it out. Ibuprofen and Tylenol as needed for pain. Elevate your foot to help reduce swelling, you can also put cold packs on there. * Attachments The following attachments cannot be sent through Care Everywhere. * VIS Tetanus Diphtheria and Pertussis (Tdap) - CDC (11/14/2020) ([place]enegrin) * Crush Injury of the Foot [id number] ([place]enegrin) documented in this encounter ED Notes * Stacie Oliver APRN, C.N.P., R.N. - 12/05/2022 3:19 PM CDT SUBJECTIVE CHIEF COMPLAINT/REASON FOR VISIT Toe Injury (Dropped cinder block on right toe causing injury) HISTORY OF PRESENT ILLNESS Maury Hudson is a 22 y.o. male without significant medical history presenting to the emergency department with complaint of right toe injury. 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 Skin: Positive for wound. Right great toe injury Allergic/Immunologic: Negative for immunocompromised state. Hematological: Does not bruise/bleed easily. OBJECTIVE Initial Vitals Temperature 12/05/22 1509 36 ??C Pulse Rate 12/05/22 1509 65 Heart Rate -- Resp Rate 12/05/22 1509 18 Blood Pressure 12/05/22 1509 119/72 SpO2 12/05/22 1509 98 % Pain Score 12/05/22 1507 5 - Moderate pain PHYSICAL EXAMINATION Constitutional: Nursing note and vitals reviewed. No distress. HENT: Head: Normocephalic and atraumatic. Nose: Nose normal. Mouth/Throat: Mucous membranes are moist. Eyes: Conjunctivae are normal. Pupils are equal, round, and reactive to light. Right eye exhibits no discharge. Left eye exhibits no discharge. Pulmonary/Chest: Effort normal. No tachypnea. Musculoskeletal: General: Normal range of motion. Cervical back: Normal range of motion. Comments: Right great toenail discolored black, avulsed at distal end. Small amount of blood seeping from under the nail. No deformity. Remainder of foot uninjured. Neurological: Alert. Skin: Skin is warm. He is not diaphoretic. Psychiatric: He has a normal mood and affect. Behavior is normal. Judgment and thought content normal. ASSESSMENT/PLAN 22yo male dropped a cinder block on his right great toe about 20 minutes prior to arrival. Distal nail is slightly avulsed with a subungual hematoma, blood escaping from underneath the avulsed nail. No obvious deformity and no other injury reported or noted on exam. X-ray shows distal tuft displaced avulsion fracture Plan Tetanus administered in department. Patient declined pain medication. Discharge home with toe wrapped. Keep clean and covered, elevate to reduce swelling. Follow-up with primary care if not improved over the next week. Work note provided. MDM Fracture, nail bed injury, subungual hematoma ED Course as of 12/05/22 1617 Sun Dec 05, 2022 1617 Called patient to let him know of radiology report Final Diagnoses: as of 12/05/22 161 Injury Toe Initial Right Fracture Great Toe Distal Phalanx Displaced Closed Initial Right Stacie Oliver APRN, C.N.P., R.N. 12/05/22 1618 documented in this encounter Plan of Treatment Not on file documented as of this encounter Procedures Procedure Name Priority Date/Time Associated Diagnosis Comments DX TOES RIGHT 3 VIEWS RAD - Semiurgent (Fast; most ED patients; some inpatients) 12/05/2022 3:47 PM CDT documented in this encounter Results * DX Toes Right 3 Views (12/05/2022 3:47 PM CDT) Anatomical Region Laterality Modality Lower Extremity, Toes, Muscu loskeletal RST LOS, Musculoskeletal ARZ LOS, Muskuloskeletal FLA LOS Right Digit al Radiography 12/05/2022 4:00 PM CDT Impressions 12/05/2022 4:01 PM CDT Minimally displaced fracture of the first distal phalangeal tuft. First toe soft tissue swelling. Narrative 12/05/2022 4:01 PM CDT EXAM: DX TOES RIGHT 3 VIEWS Procedure Note Mikel No M.D. - 12/05/2022 EXAM: DX TOES RIGHT 3 VIEWS IMPRESSION: Minimally displaced fracture of the first distal phalangeal tuft. Firsttoe soft tissue swelling. Stacie Oliver APRN C.N.P. IMG DIAG NOSTIC IMAGING PROCEDURES documented in this encounter Visit Diagnoses Diagnosis Injury Toe Initial Right- Primary Fracture Great Toe Distal Phalanx Displaced Closed Initial Right documented in this encounter
--- OUTSIDE RECORDS SUMMARY | 2023-04-19 18:21 | XMS_ITS | Referral Summary ---
Author Name Unknown Organization [facility] Address [address] [place] [address] Care Team Providers Care Demurrage Clerk Name Role Phone None Reported, Pcp Primary Care Provider Unavail able Source Comments Patient records contain information from all sites at [facility]. For routine questions regarding patient records, call [phone] during business hours, M-F 8:00 AM - 5:00 PM Central Time. Record requests for emergency care only can be directed to [phone] at any time.[facility] Encounters Date Type Department Care Team Description 02/07/2023 12:48 PM CDT - 02/07/2023 1:27 PM CDT Emergency [facility] [address] [place] [phone] Stacie Oliver APRN, C.N.P. Laceration Hand Without Foreign Body Initial Left (Primary Dx) Discharge Disposition: Home or Self Care from Last 3 Months Allergies No known active allergies Medications No known medications Active Problems No known active problems Immunizations Name Administration Dates Next Due Tdap 12/05/2022 Social History Tobacco Use Types Packs/Day Years [...] on file Sexual Orientation Not on file Last Filed Vital Signs Vital Sign Reading Time Taken Comments Blood Pressure 106/68 12/05/2022 4:04 PM CDT Pulse 95 02/07/2023 12:55 PM CDT Temperature 36.8 ??C (98.2 ??F) 02/07/2023 1 2:55 PM CDT Respiratory Rate 18 12/05/2022 3:09 PM CDT Oxygen Saturation 99% 02/07/2023 12: 55 PM CDT Inhaled Oxygen Concentration - - Weight 88.8 kg (195 lb 12.3 oz) 12/05/2022 3:07 PM CDT Height - - Body Mass Index - - Plan of Treatment Not on file Procedures Procedure Name Priority Date/Time Associated Diagnosis Comments LACERATION REPAIR Routine 02/07/2023 1:1 1 PM CDT from Last 3 Months Results * Laceration Repair (02/07/2023 1:11 PM CDT) Narrative Stacie Oliver APRN C.N.P. - 02/07/2023 1:11 PM CDT Stacie Oliver APRN, C.N.P. ? 02/07/2023 ??1:12 PM Laceration Repair Performed by: Stacie Oliver APRN C.N.P. Authorized by: Stacie Oliver APRN C.N.P. ?? Care team members present 1. Stacie Oliver APRN C.N.P. PROCEDURE DETAILS Repair type: ??Simple Limited defect created (wound extended): no ?? Hemostasis achieved with: ??Direct pressure Contaminated: no ?? Wound exploration: wound explored through full range of motion and entire depth of wound probed and visualized ?? Repair method: ??Steri-Strips and tissue adhesive Number of Steri-Strips: ??3 Approximation: ??Close CONSENT Consent obtained: verbal Consent given by: patient The benefits, risks and alternatives to the procedure and the potential need for sedation or anesthesia as well as the names, roles, and responsibilities of healthcare team members performing significant interventional tasks were discussed with the patient and/or decision maker. UNIVERSAL PROTOCOL All relevant documentation and testing were reviewed and available. All required blood products, implants, devices and or special equipment were made available as applicable. Pre-procedure verification was conducted and the correct site was marked if required. A fire risk assessment was done as applicable. The procedural time-out to verify correct patient, correct side/site, and procedure was conducted prior to performing the procedure and confirmed in a procedural pause. SEDATION / ANESTHESIA Anesthesia method: none PRE PROCEDURE DETAILS Indication: laceration ?? Location: ??Finger Finger location: ??Left index finger Length (cm): ??2 Depth (mm): ??2 Circulation distal to injury: capillary refill < 2 sec, warm, pink and palpable pulse ?? Movement distal to injury: normal ?? Sensation distal to injury: normal ?? Area cleansed with: ??Povidone/iodine and soap and water Amount of cleaning: ??Standard Irrigation solution: ??Tap water Irrigation method: ??Tap Foreign body imaging: ??None Appropriate hand hygiene, gown, cap, mask, protective eyewear, sterile gloves, skin preparation, sterile drape, and strict aseptic technique were utilized as applicable for the procedure.: Yes ?? POST PROCEDURE DETAILS Procedure completed successfully: yes ?? Tetanus status up to date: ??Up to date Dressing Applied: no ?? Movement distal to injury: normal ?? Sensation distal to injury: normal ?? Complications: no immediate complications ?? Stacie Oliver APRN C.N.PCathie PROCEDUR E/MINOR SURGICAL ORDERABLES from Last 3 Months Care Teams Demurrage Clerk Relationship Specialty Start Date End Date None Reported, Pcp PCP - General Family Medicine 02/07/23
--- OUTSIDE RECORDS SUMMARY | 2023-04-19 18:21 | XMS_ITS | Encounter Summary ---
Author Name Unknown Organization [facility] Address [address] [place] [address] Care Team Providers Care Junior Electrical Engineer Name Role Phone None Reported, Pcp Primary Care Provider Unavail able Reason for Visit * Reason Comments Extremity Laceration Left index finger Encounter Details Date Type Department Care Team (Late st Contact Info) Description 02/07/2023 12:48 PM CDT - 02/07/2023 1:27 PM CDT Emergency [facility] [address] [place] [phone] Stacie Oliver APRN, C.N.P. [address] [place] [phone] Laceration Hand Without Foreign Body Initial Left (Primary Dx) Discharge Disposition: Home or Self Care Social History Tobacco Use Types Packs/Day Years Used Date Smoking Tobacco: Never Smokeless Tobacco: Never Alcohol Use Standard Drinks/Week Comments Not Currently 0 (1 standard drink = 0.6 oz pur e alcohol) Nutrition Answer Date Recorded Nutrition: EVOO Fat Source Unknown 12/05 Nutrition: Servings of Fruits/Vegetables per Day Not on file 12/05/2022 Dental Answer Date Recorded Dental: Regular Dentist Unknown 12/06/19 23 Sex and Gender Information Value Date Recorded Sex Assigned at Not on file Gender Identity Not on file Sexual Orientation Not on file documented as of this encounter Last Filed Vital Signs Vital Sign Reading Time Taken Comments Blood Pressure - - Pulse 95 02/07/2023 12:55 PM CDT Temperature 36.8 ??C (98.2 ??F) 02/07/2023 12:55 PM C DT Respiratory Rate - - Oxygen Saturation 99% 02/07/2023 12:55 PM CDT Inhaled Oxygen Concentration - - Weight - - Height - - Body Mass Index - - documented in this encounter Discharge Instructions * Discharge Instructions* Stacie Oliver APRN, C.N.P. - 02/07/2023 1:09 PM CDT Cut to your finger repaired with steri-strips and dermabond (skin glue). Don't get it wet for the next couple hours. After that it can get wet - you can wash your hands - but don't soak it. Once dry you can put gauze or a regular bandaid over it but don't put the sticky part on the glue. Keep it covered while at work. Glue will come off in 3-5 days. Come back for any signs of infection - red, hot, swollen, more painful or doesn't look right. * Attachments The following attachments cannot be sent through Care Everywhere. * Tissue Adhesive Wound Care (Maltese) documented in this encounter Procedure Notes * Stacie Oliver APRN, C.N.P. - 02/07/2023 1:11 PM CDTAssociated Order(s): Laceration Repair Procedure Laceration Repair Performed by: Stacie Oliver APRN C.N.P. Authorized by: Stacie Oliver APRN C.N.P. Care team members present 1. Stacie Oliver APRN, C.N.P. PROCEDURE DETAILS Repair type: Simple Limited defect created (wound extended): no Hemostasis achieved with: Direct pressure Contaminated: no Wound exploration: wound explored through full range of motion and entire depth of wound probed andvisualized Repair method: Steri-Strips and tissue adhesive Number of Steri-Strips: 3 Approximation: Close CONSENT Consent obtained: verbal Consent given by: [...] method: none PRE PROCEDURE DETAILS Indication: laceration Location: Finger Finger location: Left index finger Length (cm): 2 Depth (mm): 2 Circulation distal to injury: capillary refill < 2 sec, warm, pink and palpable pulse Movement distal to injury: normal Sensation distal to injury: normal Area cleansed with: Povidone/iodine and soap and water Amount of cleaning: Standard Irrigation solution: Tap water Irrigation method: Tap Foreign body imaging: None Appropriate hand hygiene, gown, cap, mask, protective eyewear, sterile gloves, skin preparation, sterile drape, and strict aseptic technique were utilized as applicable for the procedure.: Yes POST PROCEDURE DETAILS Procedure completed successfully: yes Tetanus status up to date: Up to date Dressing Applied: no Movement distal to injury: normal Sensation distal to injury: normal Complications: no immediate complications Stacie Oliver APRN, C.N.P. 02/07/23 1312 documented in this encounter ED Notes * Stacie Oliver APRN, C.N.P. - 02/07/2023 12:49 PM CDT SUBJECTIVE CHIEF COMPLAINT/REASON FOR VISIT Extremity Laceration (Left index finger) HISTORY OF PRESENT ILLNESS Maury Hudson is a 22 y.o. male without significant medical history presenting to the emergency department for evaluation of a laceration to left index finger. Cut with a utility knife while cutting plastic. Last tetanus was just a couple months ago per patient. History provided by: Patient and medical records state archivist needed/used: no REVIEW OF SYSTEMS Skin: Positive for wound. Neurological: Negative for weakness and numbness. OBJECTIVE Initial Vitals [02/07/23 1255] Temperature 36.8 ??C Pulse Rate 95 Heart Rate Resp BP SpO2 99 % Pain Score 0 - No pain PHYSICAL EXAMINATION Constitutional: Nursing note and vitals reviewed. No distress. HENT: Head: Normocephalic and atraumatic. Nose: Nose normal. Mouth/Throat: Mucous membranes are moist. Eyes: Conjunctivae are normal. Right eye exhibits no discharge. Left eye exhibits no discharge. Pulmonary/Chest: Effort normal. No tachypnea. Musculoskeletal: General: Normal range of motion. Cervical back: Normal range of motion. Neurological: Alert. Skin: Skin is warm and intact. He is not diaphoretic. 1cm laceration at base of left index finger on the radial side. No gross contamination, foreign body. Normal distal sensation and normal flexion/extension. Psychiatric: He has a normal mood and affect. Behavior is normal. Judgment and thought content normal. ASSESSMENT/PLAN 1 cm laceration side of left index finger at the base. Normal distal sensation and movement. No foreign body and no visible tendon or other underlying structure. Repaired in department with steri strips and Dermabond. Return precautions reviewed, for any sign of infection. SDOH none appreciated. No imaging indicated. Final Diagnoses: as of 02/07/23 1311 Laceration Hand Without Foreign Body Initial Left Stacie Oliver APRN CCathieN.P. 02/07/23 1311 documented in this encounter Plan of Treatment Not on file documented as of this encounter Procedures Procedure Name Priority Date/Time Associated Diagnosis Comments LACERATION REPAIR Routine 02/07/2023 1:1 1 PM CDT documented in this encounter Results * Laceration Repair (02/07/2023 1:11 PM CDT) Narrative Stacie Oliver APRN, C.N.P. - 02/07/2023 1:11 PM CDT Stacie Oliver APRN, C.N.P. ? 02/07/2023 ??1:12 PM Laceration Repair Performed by: Stacie Oliver APRN, C.N.P. Authorized by: Stacie Oliver APRN, C.N.P. ?? Care team members present 1. Stacie Oliver APRN, C.N.P. PROCEDURE DETAILS Repair type: ??Simple Limited [...] Complications: no immediate complications ?? Stacie Oliver APRN, C.N.P. PROCEDUR E/MINOR SURGICAL ORDERABLES documented in this encounter Visit Diagnoses Diagnosis Laceration Hand Without Foreign Body Initial Left- Primary documented in this encounter Care Teams Junior Electrical Engineer Relationship Specialty Start Date End Date None Reported, Pcp PCP - General Family Medicine 02/07/23 documented as of this encounter
--- OUTSIDE RECORDS SUMMARY | 2023-04-19 18:21 | XMS_ITS | Clinical Summary ---
Author Name Unknown Organization [facility] Address [address] [place] [address] Care Team Providers Care Disaster Director Name Role Phone None Reported, Pcp Primary Care Provider Unavail able Source Comments Patient records contain information from all sites at [facility]. For routine questions regarding patient records, call [phone] during business hours, M-F 8:00 AM - 5:00 PM Central Time. Record requests for emergency care only can be directed to [phone] at any time.[facility] Allergies No known active allergies Medications No known medications Active Problems No known active problems Encounters Date Type Department Care Team Description 02/07/2023 12:48 PM CDT - 02/07/2023 1:27 PM CDT Emergency [facility] [address] [place] [phone] Stacie Oliver, HENRY, C.N.P. Laceration Hand Without Foreign Body Initial Left (Primary Dx) Discharge Disposition: Home or Self Care from Last 3 Months Immunizations Name Administration Dates Next Due Tdap [...] Mass Index - - Plan of Treatment Health Maintenance Due Date Last Done Comments HIV Screening 2001 Hearing Screening during Well Child Visit 2001 Hepatitis B Vaccines (1 of 3 - 3-dose series) 2001 Hepatitis C Screening 2001 1 week Well Child Check-Up 2001 Well Child Check-Up (WC) 2001 1 month Well Child Check-Up 2001 2 month Well Child Check-Up 2001 4 month Well Child Check-Up 2001 6 month Well Child Check-Up 2001 COVID-19 Vaccine (#1) 2001 9 month Well Child Check-Up 2001 12 month Well Child Check-Up 03/27/2002 15 month Well Child Check-Up 06/25/2002 18 month Well Child Check-Up 09/25/2002 2 year Well Child Check-Up 03/27/2003 30 month Well Child Check-Up 09/26/2003 3 year Well Child Check-Up 03/27/2004 4 year Well Child Check-Up 03/27/2005 5 year Well Child Check-Up 03/27/2006 6 year Well Child Check-Up 03/27/2007 7 year Well Child Check-Up 03/27/2008 8 year Well Child Check-Up 03/27/2009 9 year Well Child Check-Up 03/27/2010 10 year Well Child Check-Up 03/27/2011 11 year Well Child Check-Up 03/27/2012 12 year Well Child Check-Up 03/27/2013 13 year Well Child Check-Up 03/27/2014 14 year Well Child Check-Up 03/27/2015 15 year Well Child Check-Up 03/27/2016 16 year Well Child Check-Up 03/27/2017 17 year Well Child Check-Up 03/27/2018 18 year Well Child Check-Up 03/27/2019 19 year Well Child Check-Up 03/27/2020 21 year Well Child Check-Up 03/27/2021 22 year Well Child Check-Up 03/27/2022 Depression Screening (Annual PHQ-2) 04/11/2022 Influenza Vaccine (#1) 2023 9, 02/28/2017, 12/30/2015, Additional history exists DTaP,Tdap,and Td Vaccines (4 - Td or Tdap) 12/05/2032 12/05/2022, 11/22/2013, 11/30/2006 HPV Vaccines Completed 06/19/2014, 01/09, 11/22/2013 Meningococcal Vaccine Completed 12/05/2018, 014 Pneumococcal vaccine (0-64 years) Aged Out No longer eligible based on patient's age to complete this topic Procedures Procedure Name Priority Date/Time Associated Diagnosis Comments LACERATION REPAIR Routine 02/07/2023 1:1 1 PM CDT from Last 3 Months Results * Laceration Repair (02/07/2023 1:11 PM CDT) Narrative Stacie Oliver APRN, C.N.P. - 02/07/2023 1:11 PM CDT Stacie Oliver APRN C.N.P. ? 02/07/2023 ??1:12 PM Laceration Repair Performed by: Stacie Oliver APRN, C.N.P. Authorized by: Stacie Oliver APRN C.N.P. [...] no immediate complications ?? Stacie Oliver APRN CCathieN.PCathie PROCEDUR E/MINOR SURGICAL ORDERABLES from Last 3 Months Care Teams Disaster Director Relationship Specialty Start Date End Date None Reported, Pcp PCP - General Family Medicine 02/07/23
--- OUTSIDE RECORDS SUMMARY | 2023-04-19 18:21 | XMS_ITS | Clinical Summary ---
Author Name Unknown Organization [facility] Address [place], [place] [address] Care Team Providers Care [facility] Representative Name Role Phone Pcp, No Primary Care Provider Unavailabl e Allergies No known active allergies Medications Medication Sig Dispensed Refills Start Date End Date Status adapalene (DIFFERIN) 0.1 % creamIndications:A cne, unspecified acne type Apply topically to affected area(s) at bedtime. 45 g 4 01/22/2019 04/19/2023 Discontinued (*Med complete/Reg imen complete/Lev el of care change) clindamycin 1% (CLEOCIN-T) 1 % gelIndications:Acn e, unspecified acne type Apply topically to affected area(s) 2 times daily. 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, reading 10/06/2011 Overview: School report Basic learning disability, arithmetic 10/06/2011 Overview: School report Adjustment disorder with mixed emotional feature s 09/28/2011 Overview: Rule out ADHD Mitral insufficiency 04/28/2011 Overview: Trivial on echo Encounters Date Type Department Care Team Description 04/19/2023 4:10 PM PHARMACY CLINICAL COORDINATOR Office Visit [address] [place] [address] Manuel Salazar DO Throat Problem (x1 week - white discharge in the back of throat - bleeding ) 04/19/2023 Travel from Last 3 Months Immunizations Name Administration Dates Next Due DTaP 11/30/2006, 3,2001,09/22,2001 HIB-HepB (Comvax) 08/24/2002,2001,06/21/19 02 Hepatitis A (Peds) 11/22/2013,04/13/2011 Human Papilloma Virus Vaccine 06/19/2014, 014,11/22/2013 Inactivated Polio Vaccine 11/30/2006,05/2001,2001,06/20 Influenza, IIV3 (Age >=3 years) 04/13/2011,04/18,03/18/2007 Influenza, IIV4 01/22/2019, 7,12/30/2015,12/20,12/24/2013 MMR 11/30/2006,05/28/2002 Meningococcal Vaccine (Menveo) 12/05/2018,2013 Pneumococcal conj 7-Valent (Prevnar 7) 0 08/24/2002,2001,2001,06/20 Tdap 11/22/2013 Varicella Vaccine 11/30/2006,05/28/2002 Family History Medical History Relation Name Comments Allergies Father sulfa Heart Disease Maternal Grandfather [place] Asthma Maternal Grandmother osteoar tritis Allergies Mother PCN Unknown Paternal Grandfather Unknown Paternal Grandmother Relation Name Status Comments Father Maternal Grandfather Maternal Grandmother Mother Paternal Grandfather Paternal Grandmother Social History Tobacco Use Types Packs/Day Years Used Date Smoking Tobacco: Never Smokeless Tobacco: Never Tobacco Cessation:Counseling Given: Yes Comments:no exposure Alcohol Use Standard Drinks/Week Comments No 0 (1 standard drink = 0.6 oz pur e alcohol) PHQ-2 Answer Date Recorded PHQ-2 Score 2 01/29/2019 Sex and Gender Information Value Date Recorded Sex Assigned at Not on file Gender Identity Not on file Sexual Orientation Not on file Obstetrics History Last Filed Vital Signs Vital Sign Reading Time Taken Comments Blood Pressure 118/75 04/19/2023 4:26 PM PHARMACY CLINICAL COORDINATOR Pulse 102 04/19/2023 4:26 PM PHARMACY CLINICAL COORDINATOR Temperature 36.4 ??C (97.5 ??F) 01/22/2019 1:37 PM CD T Respiratory Rate - - Oxygen Saturation 97% 04/19/2023 4:26 PM PHARMACY CLINICAL COORDINATOR Inhaled Oxygen Concentration - - Weight 91 kg (200 lb 9.6 oz) 04/19/2023 4:26 PM PHARMACY CLINICAL COORDINATOR Height 182.5 cm (5' 11.85) 01/22/2019 1:37 PM C DT Body Mass Index - - Plan of Treatment Health Maintenance Due Date Last Done Comments COVID-19 vaccine series (#1) 2001 HIV for age 15-65 2016 BMI (ht and wt on same day) for age 18+ 2019 Hepatitis C screening for age 18-79 2019 Depression screening for age 12+ 01/31/2020 01/30/2019, 01/29/2019, 01/22/2019, Additional history exists Influenza for age 9-49 12/10/2022 9, 02/28/2017, 12/30/2015, Additional history exists Tetanus booster 11/23/2023 11/22/2013 Pneumococcal series for age 6-64 Aged Out 08/24/2002, 2001, 2001, Additional history exists No longer eligible based on patient's age to complete this topic Tdap Completed 11/22/2013 HPV series for age 9-26 Completed 06/20/19 15, 01/22/2014, 11/22/2013 Meningococcal series for age 11-21 Completed 12/05/2018, 11/22/2013 Procedures Procedure Name Priority Date/Time Associated Diagnosis Comments THROAT RAPID STREP ONLY CLINIC Routine 04/19/2023 4:32 PM PHARMACY CLINICAL COORDINATOR Sore throat from Last 3 Months Results * THROAT RAPID STREP ONLY CLINIC (04/19/2023 4:32 PM PHARMACY CLINICAL COORDINATOR) THROAT RAPID STREP A ANTIGEN Negative 04/19/2023 4:41 PM PHARMACY CLINICAL COORDINATOR [facility] Throat SPECIMEN FROM THROAT / Unknown Non-Blood / Unknown 04/19/2023 4:32 PM PHARMACY CLINICAL COORDINATOR 04/19/2023 4:32 PM PHARMACY CLINICAL COORDINATOR Manuel Salazar DO MICROBIOLOGY [facility] [address] [place] [address], [place] [phone] from Last 3 Months Care Teams Medical Center Representative Relationship Specialty Start Date End Date Pcp, No . PCP - General 04/19/23
--- OUTSIDE RECORDS SUMMARY | 2023-04-19 18:21 | XMS_ITS ---
Author Name Unknown Organization [facility] Address [address] [place] [address] Care Team Providers Care Customs Investigator Name Role Phone Unavailable Unavailable Unavailable Surgery Details Not on file Complications Check Surgery Details section. Procedure Estimated Blood Loss Check Surgery Details section. Procedure Findings Check Surgery Details section. Procedure Specimens Taken Check Surgery Details section.
[2023-04-19] MEDS: dexAMETHasone 4 MG/ML VIAL 10 MG IV (18:22)
[2023-04-19] MEDS: KETOROLAC 15 MG/ML inj IVP (18:22)
[2023-04-19] MEDS: 0.9 % SODIUM CHLORIDE 1000 ml 1,000 ML IV (18:23)
[2023-04-19 18:30] LABS: Slide Review Reflex No
[2023-04-19 18:37] LABS: Albumin* 4.8 g/dL (3.3-5.0); Chloride* 101 mmol/L (96-114); Sodium* 138 mmol/L (135-149)
[2023-04-19 18:39] LABS: Anion Gap 7 mEq/L (7-15); Bilirubin Total* 0.6 mg/dL (0.1-1.5); Carbon Dioxide* 30 mmol/L (20-32); Creatinine* 0.9 mg/dL (0.5-1.5); Est. Creatinine Clearance* 155.18; Estimated Glomerular Filt Rate 125 ml/min
[2023-04-19 18:40] LABS: Alanine Aminotransferase* 291 U/L (4-50); Alkaline Phosphatase* 85 U/L (40-150); Aspartate Amino Transferase* 163 U/L (12-35); Blood Urea Nitrogen* 15 mg/dL (5-24); Calcium* 9.4 mg/dL (8.4-10.6); Glucose* 104 mg/dL (60-115); Total Protein* 8.4 g/dL (6.0-8.3)
[2023-04-19 19:43] LABS: Mono Screen* POSITIVE (Negative)
[2023-04-19] MEDS: AMPICILLIN/SULBACTAM 3 GM in 0.9 % SODIUM CHLORIDE Mini-bag 100 ML IVPB (19:56)
--- NOTE | 2023-04-19 21:10 | ED.NURSE ---
Pt report given to reina SONG
--- NOTE | 2023-04-19 21:43 | P.IMHP_ITS ---
Hospitalist- H&P: HPI History of Present Illness Date Seen: 04/19/23 Chief complaint: Throat problems Narrative: Maury Hudson is a 22 year old healthy male admitted to the hospital with 2 week history of fatigue and a 1 week history of worsening sore throat. He has not had other respiratory symptoms, cough or congestion. He reports in the last day he has had painful swallowing. His appetite is decreased. He has not had fever. He has not had abdominal pain. No shortness of breath. His girlfriend notes that he has had exudate and enlarged erythematous tonsils. He went to clinic where he had a negative strep test. In the emergency room here he had a positive mono test and a CT of the neck showing intra tonsillar phlegmon/abscess. Review of Systems Narrative: Prior to the last 2 weeks he was feeling well. Reports the fatigue is been present for a couple weeks but the sore throat really developed about 1 week ago. He reports no previous medical problems. No previous hospitalizations. He had surgery as an infant for what is probably pyloric stenosis. He is not aware of any personal or family problems with anesthesia or bleeding. [facility] Medical History No significant past medical history Surgical History No significant past surgical history Social History (Updated 04/19/23 @ 21:49 by Caden Cortés MD) Narrative: He presents with his girlfriend. He does not smoke. He occasionally drinks alcohol, less than once a week, no recreational drug use. 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 What is your current living situation?: I presently have a place to live Problems where you live: no known problems Problems where you live details: none In the past 12 months, utilities in danger of being shut off: no In past 12 months, lack of transportation kept you from medical appts, meetings, work, or getting things needed for daily living: no In the past 12 mos, have been you worried that your food would run out before you had money to buy more?: never true In the past 12 mos, the food you bought just didn't last and you didn't have money to buy more?: never true Highest level of school completed/degree received: high school graduate Smoking Status: Never smoker Second hand tobacco smoke exposure: No How often do you have a drink containing alcohol: monthly or less Alcohol type: beer How many standard drinks containing alcohol do you have on a typical day: 7 to 9 How often do you have six or more drinks on one occasion: Less than monthly AUDIT-C Alcohol total score: 5 Non-prescribed substance use: denies use Caffeine: Yes (energy drink, pop) How often does anyone, including family, friends and others, physically hurt you : never How often does anyone, including family, friends and others, insult or talk down to you: never How often does anyone, including family, friends and others, threaten you with harm: never How often does anyone, including family, friends and others, scream or curse at you: never service: No Meds Home Medications and Allergies Home Medications Medication Instructions Recorded Confirmed Type No Known Home Medications 03/29/23 04/19/23 History Allergies Allergy/AdvReac Type Severity Reaction Status Date / Time No Known Drug Allergies Allergy Verified 04/19/23 18:27 Exam Narrative: Exam Narrative: He is alert and appears in no distress. Voice is normal. Pinnas external canals TMs normal. Oropharynx with moderate bilateral tonsillar enlargement and bilateral exudate. Airway is patent. Tonsils are not meeting in the midline. No trismus. Neck is supple with mild tenderness. No marked adenopathy. Respirations are clear to auscultation. Cardiovascular: S1, S2, regular rate a nd rhythm. Abdomen is soft without tenderness or organomegaly. Extremities without edema. No rash. Good peripheral perfusion. Const: Vital Signs, click to edit/add: Vital Signs - 24 hr 04/19/23 17:09 04/19/23 19:07 04/19/23 19:15 Temperature 99.3 F Pulse Rate 81 78 Pulse Rate [Pulse Oximeter] Pulse Rate [Right Pulse Oximeter] 107 H Respiratory Rate 16 Blood Pressure Blood Pressure [Le ft Arm] Blood Pressure [Ri ght Upper Arm] 118/73 Pulse Oximetry 97 97 97 Oxygen Delivery Me thod Room Air 04/19/23 19:30 04/19/23 19:45 04/19/23 19:57 Temperature Pulse Rate 74 90 Pulse Rate [Pulse Oximeter] Pulse Rate [Right Pulse Oximeter] 90 Respiratory Rate 16 Blood Pressure Blood Pressure [Le ft Arm] Blood Pressure [Ri ght Upper Arm] 112/50 L Pulse Oximetry 96 98 97 Oxygen Delivery Me thod Room Air 04/19/23 19:57 04/19/23 20:00 04/19/23 20:15 Temperature Pulse Rate 86 91 85 Pulse Rate [Pulse Oximeter] Pulse Rate [Right Pulse Oximeter] Respiratory Rate Blood Pressure 112/50 L Blood Pressure [Le ft Arm] Blood Pressure [Ri ght Upper Arm] Pulse Oximetry 97 98 97 Oxygen Delivery Me thod 04/19/23 20:32 04/19/23 20:45 04/19/23 21:00 Temperature Pulse Rate 88 95 97 Pulse Rate [Pulse Oximeter] Pulse Rate [Right Pulse Oximeter] Respiratory Rate Blood Pressure Blood Pressure [Le ft Arm] Blood Pressure [Ri ght Upper Arm] Pulse Oximetry 97 94 96 Oxygen Delivery Me thod 04/19/23 21:22 Temperature 98.1 F Pulse Rate Pulse Rate [Pulse Oximeter] 81 Pulse Rate [Right Pulse Oximeter] Respiratory Rate 16 Blood Pressure Blood Pressure [Le ft Arm] 111/63 Blood Pressure [Ri ght Upper Arm] Pulse Oximetry 97 Oxygen Delivery Ut thod Room Air Documenting provider has reviewed patient's vital signs: yes Hospitalist - H&P: Result Labs Labs: Short CBC 04/19/23 Range/Units 18:08 WBC 12.09 H (4.50-11.00) K/uL Hgb 13.6 (13.5-17.5) gm/dL Hct 39.9 (37.0-53.0) % Plt Count 204 (140-440) K/uL BMP 04/19/23 18:08 Sodium 138 Potassium 4.0 Chloride 101 Carbon Dioxide 30 BUN 15 Creatinine 0.9 Glucose 104 Calcium 9.4 Liver Function 04/19/23 Range/Units 18:08 Total Bilirubin 0.6 (0.1-1.5) mg/dL AST 163 H (12-35) U/L ALT 291 H (4-50) U/L Alkaline Phosphatase 85 (40-150) U/L Albumin 4.8 (3.3-5.0) g/dL Assessment and Plan Assessment and plan (1) Infectious mononucleosis: Status: Acute (2) Abscess, intratonsillar: Problem comment: Consult ENT. Clindamycin and dexamethasone. Status: Acute (3) Hepatitis: Problem comment: Elevated transaminases likely due to infectious mononucleosis Status: Acute Plan Admit to the hospital for IV antibiotics, steroids, NPO pending surgical consultation. Total time spent today is 55 minutes in coordination of care discussion with patient and girlfriend management of abscess and infectious mono
[2023-04-19] MEDS: LACTATED RINGERS 1000 ML 1,000 ML 125 ML IV (22:18)
[2023-04-19] MEDS: SODIUM CHLORIDE 0.9 % (FLUSH) 10 ML SYRINGE 5 ML IVF (22:20)
[2023-04-20] MEDS: CLINDAMYCIN 600 MG/50 ML-D5W 600 MG/50 ML PIGGYBACK 100 MG IVPB ×2 (02:32→10:56)
[2023-04-20 03:00] VITALS: BP 109/49; PULSE 80; RESP 14; TEMP 36.5; O2SAT 96
[2023-04-20 06:31] LABS: Basophils Absolute Auto 0.01 K/uL (0.00-0.30); Basophils Percent Auto 0.1 % (0.0-3.0); Hematocrit 38.6 % (37.0-53.0); Hemoglobin* 13.1 gm/dL (13.5-17.5); Immature Granulocytes Abs Auto 0.01 K/uL (0.00-0.30); Immature Granulocytes Pct Auto 0.1 %; Lymphocytes Percent Auto 50.1 % (20-44); Mean Corpuscular HGB Conc 34 gm/dL (32-36); Mean Corpuscular Hemoglobin 28 pg (26-34); Mean Corpuscular Volume 81 fL (80-100); Monocytes Percent Auto 8.8 % (0.0-11.0); Neutrophils Percent Auto 40.9 % (42.0-72.0); Platelet Count* 196 K/uL (140-440); RDW Coefficient of Variation % 12.4 % (11.5-15.5); Red Blood Count 4.77 m/uL (4.30-5.90); White Blood Count* 8.84 K/uL (4.50-11.00)
--- NOTE | 2023-04-20 06:34 | PC.NURSE ---
Pt alert and oriented x3. Afebrile. Pt reports 2/10 pain in throat, pain medications offered, pt refused stating ?I am good, right now?. Pt denies SOB, chest pain, and N/V. Pt?s throat continues to be Pt is up IND in room. Significant other is at bed side. Pt slept intermittently throughout night. ?
[2023-04-20 06:51] LABS: Albumin* 4.4 g/dL (3.3-5.0)
[2023-04-20 06:54] LABS: Alanine Aminotransferase* 255 U/L (4-50); Alkaline Phosphatase* 81 U/L (40-150); Aspartate Amino Transferase* 103 U/L (12-35); Bilirubin Direct* 0.1 mg/dL (0.0-0.5); Bilirubin Total* 0.3 mg/dL (0.1-1.5)
[2023-04-20 07:50] VITALS: BP 117/68; PULSE 76; RESP 16; TEMP 36.4; O2SAT 95
[2023-04-20 08:02] LABS: Slide Review Reflex Yes
[2023-04-20 08:04] LABS: Slide Review Acceptable Review (Acceptable)
[2023-04-20] MEDS: LACTATED RINGERS 1000 ML 1,000 ML 125 ML IV (08:05)
--- NOTE | 2023-04-20 08:21 | W.PM.ENTCN ---
HPI- ENT Consult Date of Consult Date Seen: 04/20/23 Patient: Other Consult date: 04/20/23 Requesting Physician: Other Primary Care Provider: Not a Local Provider Consult Narrative Reason for consult: Right intra tonsillar abscess Narrative: Maury Hudson is a 22 year old male admitted to the hospital last night with a 1.9 cm phlegmon or abscess within the right tonsil. He is positive for mono. He was treated with initial Unasyn now clindamycin and then 2 doses of Decadron. He has never had any trismus. He reports that following the antibiotics and overnight he feels much better. He still has a sore throat. [facility] Medical History No significant past medical history Surgical History No significant past surgical history Social History (Updated 04/19/23 @ 21:49 by Caden Cortés MD) Narrative: He presents with his girlfriend. He does not smoke. He occasionally drinks alcohol, less than once a week, no recreational drug use. 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 What is your current living situation?: I presently have a place to live Problems where you live: no known problems Problems where you live details: none In the past 12 months, utilities in danger of being shut off: no In past 12 months, lack of transportation kept you from medical appts, meetings, work, or getting things needed for daily living: no In the past 12 mos, have been you worried that your food would run out before you had money to buy more?: never true In the past 12 mos, the food you bought just didn't last and you didn't have money to buy more?: never true Highest level of school completed/degree received: high school graduate Smoking Status: Never smoker Second hand tobacco smoke exposure: No How often do you have a drink containing alcohol: monthly or less Alcohol type: beer How many standard drinks containing alcohol do you have on a typical day: 7 to 9 How often do you have six or more drinks on one occasion: Less than monthly AUDIT-C Alcohol total score: 5 Non-prescribed substance use: denies use Caffeine: Yes (energy drink, pop) How often does anyone, including family, friends and others, physically hurt you: never How often does anyone, including family, friends and others, insult or talk down to you: never How often does anyone, including family, friends and others, threaten you with harm: never How often does anyone, including family, friends and others, scream or curse at you: never service: No Meds Home Medications and Allergies Home Medications Medication Instructions Recorded Confirmed Type No Known Home Medications 03/29/23 04/19/23 History Allergies Allergy/AdvReac Type Severity Reaction Status Date / Time No Known Drug Allergies Allergy Verified 04/19/23 18:27 Exam Narrative: Exam Narrative: General skin neuro respiratory gait peripheral vascular vocal quality skin of head neck are all negative except bilateral 3/4 tonsils with erythema and some exudate, bilateral cervical adenopathy, normal hypopharynx larynx Const: Vital Signs, click to edit/add: Vital Signs - 24 hr 04/19/23 17:09 04/19/23 19:07 04/19/23 19:15 Temperature 99.3 F Pulse Rate 81 78 Pulse Rate [Pulse Oximeter] Pulse Rate [Right Pulse Oximeter] 107 H Respiratory Rate 16 Blood Pressure Blood Pressure [Le ft Arm] Blood Pressure [Ri ght Upper Arm] 118/73 Pulse Oximetry 97 97 97 Oxygen Delivery Me od Room Air 04/19/23 19:30 04/19/23 19:45 04/19/23 19:57 Temperature Pulse Rate 74 90 Pulse Rate [Pulse Oximeter] Pulse Rate [Right Pulse Oximeter] 90 Respiratory Rate 16 Blood Pressure Blood Pressure [Le ft Arm] Blood Pressure [Ri ght Upper Arm] 112/50 L Pulse Oximetry 96 98 97 [facility] 04/19/23 19:57 04/19/23 20:00 04/19/23 20:15 Temperature Pulse Rate 86 91 85 Pulse Rate [Pulse Oximeter] Pulse Rate [Right Pulse Oximeter] Respiratory Rate Blood Pressure 112/50 L Blood Pressure [Le ft Arm] Blood Pressure [Ri ght Upper Arm] Pulse Oximetry 97 98 97 Oxygen Delivery Me thod 04/19/23 20:32 04/19/23 20:45 04/19/23 21:00 Temperature Pulse Rate 88 95 97 Pulse Rate [Pulse Oximeter] Pulse Rate [Right Pulse Oximeter] Respiratory Rate Blood Pressure Blood Pressure [Le ft Arm] Blood Pressure [Ri ght Upper Arm] Pulse Oximetry 97 94 96 Oxygen Delivery Me thod 04/19/23 21:22 04/19/23 23:55 04/19/23 23:55 Temperature 98.1 F 97.7 F Pulse Rate Pulse Rate [Pulse Oximeter] 81 90 90 Pulse Rate [Right Pulse Oximeter] Respiratory Rate 16 16 16 Blood Pressure Blood Pressure [Le ft Arm] 111/63 113/55 L Blood Pressure [Ri ght Upper Arm] Pulse Oximetry 97 97 Oxygen Delivery Me thod Room Air Room Air 04/20/23 03:00 04/20/23 07:50 Temperature 97.7 F 97.5 F L Pulse Rate Pulse Rate [Pulse Oximeter] 80 76 Pulse Rate [Right Pulse Oximeter] Respiratory Rate 14 16 Blood Pressure Blood Pressure [Le ft Arm] 109/49 L 117/68 Blood Pressure [Ri ght Upper Arm] Pulse Oximetry 96 95 Oxygen Delivery Me thod Room Air Room Air ENT-CN: Result Labs Labs: Short CBC 04/19/23 04/20/23 Range/Units 18:08 06:13 WBC 12.09 H 8.84 (4.50-11.00) K/uL Hgb 13.6 13.1 L (13.5-17.5) gm/dL Hct 39.9 38.6 (37.0-53.0) % Plt Count 204 196 (140-440) K/uL BMP 04/19/23 18:08 Sodium 138 Potassium 4.0 Chloride 101 Carbon Dioxide 30 BUN 15 Creatinine 0.9 Glucose 104 Calcium 9.4 Liver Function 04/19/23 04/20/23 Range/Units 18:08 06:13 Total Bilirubin 0.6 0.3 (0.1-1.5) mg/dL Direct Bilirubin 0.1 (0.0-0.5) mg/dL AST 163 H 103 H (12-35) U/L ALT 291 H 255 H (4-50) U/L Alkaline Phosphatase 85 81 (40-150) U/L Albumin 4.8 4.4 (3.3-5.0) g/dL Assessment and Plan Assessment and plan (1) Abscess, intratonsillar: Problem comment: Consult ENT. Clindamycin and dexamethasone. Status: Acute (2) Infectious mononucleosis: Status: Acute Plan Early right intra tonsillar abscess, infectious mononucleosis, bilateral exudate of tonsillitis Agree with current treatment. I think he is safe to be dismissed as long as he is taking oral fluids on oral clindamycin. I did discuss with him the possibility of potential for developing a peritonsillar abscess or worsening symptoms as well as developing sleep apnea after infectious mono the tonsils do not go back down in size. In either of these cases he should follow-up.
--- NOTE | 2023-04-20 10:39 | PM.DS1 ---
DS: Providers Provider Time Seen by Provider: : Date Seen: 04/20/23 Date of admission: 04/19/23 21:20 Primary care physician: Not a Local Provider Admitting Clinician: Caden Cortés MD Consults: 04/19/23 21:13 Consult to Physician [CONS] Urgent Comment: Consulting Provider: Cy Steward Has provider been notified: Yes Attending Physician on discharge: Ruma Parr MD DS: Diagnosis Discharge Diagnosis (1) Abscess, intratonsillar: Status: Acute Problem details: Saw ENT. Clindamycin and dexamethasone x2 given. Per ENT recommendations, will continue clindamycin orally for discharge. (2) Infectious mononucleosis: Status: Acute (3) Hepatitis: Status: Acute Problem details: Elevated transaminases likely due to infectious mononucleosis Follow-up with primary care provider later this week for recheck LFTs. Off work until then. May need work restrictions to return to work since job is strenuous and is at risk for increased abdominal pressure we while having hepatitis secondary to infectious mononucleosis. DS: Summary Hospital Course Hospital Course: 22-year-old male with 2 weeks of fatigue and worsening sore throat. No other respiratory symptoms. Painful swallowing over the last day. No fevers. Strep test in clinic was negative, mononucleosis test here was positive. He was admitted to the hospital for intra tonsillar abscess seen on CT. He was given 2 doses of dexamethasone and started on clindamycin. Also of note is he has elevated transaminases likely secondary to infectious mononucleosis. He did well overnight and was able to eat and Twix bar last night at 11:[address] Steward from ENT saw the patient in consultation this morning and has recommended discharge with clindamycin only. 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 Note to PCP: He may need additional time off work verses work restrictions due to the strenuous nature of his job while he recovers from infectious mononucleosis hepatitis. Time Spent with Patient Time attestation: Total time spent providing and/or coordinating discharge services: 40 minutes due to discussions with patient and family. Exam Narrative: Exam Narrative: General: No acute distress. Awake, alert, oriented. Standing at bedside. No pallor. No jaundice. Oropharynx: Bilaterally enlarged tonsils with exudate. Mucous membranes moist. Cardiovascular: Regular rate and rhythm. No murmurs, gallops, or rubs. Respiratory: Clear to auscultation bilaterally. No wheezes or crackles. Const: Vital Signs, click to edit/add: Vital Signs - 24 hr 04/19/23 17:09 04/19/23 19:07 04/19/23 19:15 Temperature 99.3 F Pulse Rate 81 78 Pulse Rate [Pulse Oximeter] Pulse Rate [Right Pulse Oximeter] 107 H Respiratory Rate 16 Blood Pressure Blood Pressure [Le ft Arm] Blood Pressure [Ri ght Upper Arm] 118/73 Pulse Oximetry 97 97 97 [facility] 04/19/23 19:30 04/19/23 19:45 04/19/23 19:57 Temperature Pulse Rate 74 90 Pulse Rate [Pulse Oximeter] Pulse Rate [Right Pulse Oximeter] 90 Respiratory Rate 16 Blood Pressure Blood Pressure [Le ft Arm] Blood Pressure [Ri ght Upper Arm] 112/50 L Pulse Oximetry 96 98 97 [facility] 04/19/23 19:57 04/19/23 20:00 04/19/23 20:15 Temperature Pulse Rate 86 91 85 Pulse Rate [Pulse Oximeter] Pulse Rate [Right Pulse Oximeter] Respiratory Rate Blood Pressure 112/50 L Blood Pressure [Le ft Arm] Blood Pressure [Ri ght Upper Arm] Pulse Oximetry 97 98 97 Oxygen Delivery Hi thod 04/19/23 20:32 04/19/23 20:45 04/19/23 21:00 Temperature Pulse Rate 88 95 97 Pulse Rate [Pulse Oximeter] Pulse Rate [Right Pulse Oximeter] Respiratory Rate Blood Pressure Blood Pressure [Le ft Arm] Blood Pressure [Ri ght Upper Arm] Pulse Oximetry 97 94 96 Oxygen Delivery Hi thod 04/19/23 21:22 04/19/23 23:55 04/19/23 23:55 Temperature 98.1 F 97.7 F Pulse Rate Pulse Rate [Pulse Oximeter] 81 90 90 Pulse Rate [Right Pulse Oximeter] Respiratory Rate 16 16 16 Blood Pressure Blood Pressure [Le ft Arm] 111/63 113/55 L Blood Pressure [Ri ght Upper Arm] Pulse Oximetry 97 97 [facility] Room Air 04/20/23 03:00 04/20/23 07:50 Temperature 97.7 F 97.5 F L Pulse Rate Pulse Rate [Pulse Oximeter] 80 76 Pulse Rate [Right Pulse Oximeter] Respiratory Rate 14 16 Blood Pressure Blood Pressure [Le ft Arm] 109/49 L 117/68 Blood Pressure [Ri ght Upper Arm] Pulse Oximetry 96 95 Oxygen Delivery Me thod Room Air Room Air Documenting provider has reviewed patient's vital signs: yes DS: Data Data Completed and Pending Completed studies during hospitalization: Ordering Physician: Bryn Nair M.D. Date of Service: 04/19/23 Procedure(s): CT soft tissue neck w con Accession Number(s): [id number] cc: Bryn Nair M.D.; Provider,Not a Local~ ADDENDUM INDICATION: Pharyngitis, muffled voice. TECHNIQUE: CT soft tissue of the neck was acquired with 90 cc Isovue 370 contrast. COMPARISON: None available. FINDINGS: Skull base: Unremarkable. Pharynx/Larynx/Trachea: Epiglottis is normal. Airway is patent. Enlargement of bilateral palatine tonsils, right greater left. There is an intra tonsillar hypodense rim enhancing collection measuring greater than simple fluid attenuation within the right palatine tonsil. This collection measures 1.8 x 0.8 x 1.2 cm (series 3, image 37). No peritonsillar fluid collection is seen. Salivary glands: Unremarkable. Thyroid gland: Unremarkable. No significant nodules. Lymph nodes: Scattered subcentimeter bilateral cervical lymph nodes. Vessels: Unremarkable for age. Bones: Unremarkable for age. Lung apices: Unremarkable. IMPRESSION: Enlarged bilateral palatine tonsils with findings of right intra tonsillar phlegmon/developing abscess measuring up to 1.8 cm. Please note that all CT scans at this facility use dose modulation, iterative reconstruction, and/or weight-based dosing when appropriate to reduce radiation dose to as low as reasonably achievable. Dictated by Liss Lopez MD @ 04/19/2023 7:38:38 PM ----- ADDENDUM ----- Findings were related to Dr. Nair on 04/19/2023 at 7:40 p.m. Dictated by Liss Lopez MD @ Apr 19 2023 7:41PM (Electronically Signed) For Patients: As a result of the Cures Act, medical imaging exams and procedure reports are released immediately into your electronic medical record. You may view this report before your referring provider. If you have questions, please contact your health care provider. INDICATION: Pharyngitis, muffled voice. TECHNIQUE: CT soft tissue of the neck was acquired with 90 cc Isovue 370 contrast. COMPARISON: None available. FINDINGS: Skull base: Unremarkable. Pharynx/Larynx/Trachea: Epiglottis is normal. Airway is patent. Enlargement of bilateral palatine tonsils, right greater left. There is an intra tonsillar hypodense rim enhancing collection measuring greater than simple fluid attenuation within the right palatine tonsil. This collection measures 1.8 x 0.8 x 1.2 cm (series 3, image 37). No peritonsillar fluid collection is seen. Salivary glands: Unremarkable. Thyroid gland: Unremarkable. No significant nodules. Lymph nodes: Scattered subcentimeter bilateral cervical lymph nodes. Vessels: Unremarkable for age. Bones: Unremarkable for age. Lung apices: Unremarkable. IMPRESSION: Enlarged bilateral palatine tonsils with findings of right intra tonsillar phlegmon/developing abscess measuring up to 1.8 cm. Please note that all CT scans at this facility use dose modulation, iterative reconstruction, and/or weight-based dosing when appropriate to reduce radiation dose to as low as reasonably achievable. Dictated by Liss Lopez MD @ 04/19/2023 7:38:38 PM (Electronically Signed) Labs on day of discharge: Labs from last 24 hours 04/20/23 04/19/23 06:13 18:08 WBC 8.84 12.09 H RBC 4.77 4.96 Hgb 13.1 L 13.6 Hct 38.6 39.9 MCV 81 80 MCH 28 27 MCHC 34 34 RDW Coeff of Alix 12.4 12.3 Plt Count 196 204 Neut % (Auto) 40.9 L 33.4 L Lymph % (Auto) 50.1 H 55.8 H [place] % (Auto) 8.8 10.2 Eos % (Auto) 0.0 0.3 Baso % (Auto) 0.1 0.2 Neut # (Auto) 3.60 4.00 Lymph # (Auto) 4.40 H 6.70 H [place] # (Auto) 0.80 1.20 H Eos # (Auto) 0.00 0.00 Baso # (Auto) 0.01 0.00 Abs Immat Gran (auto) 0.01 0.00 Imm/Tot Granulo (auto) 0.1 0.1 Diff Slide Review Acceptable Review Sodium 138 Potassium 4.0 Chloride 101 Carbon Dioxide 30 Anion Gap 7 BUN 15 Creatinine 0.9 Estimated Creat Clear 155.18 Estimated GFR 125 Glucose 104 Calcium 9.4 Total Bilirubin 0.3 0.6 Direct Bilirubin 0.1 AST 103 H 163 H ALT 255 H 291 H Alkaline Phosphatase 81 85 Total Protein 8.0 8.4 H Albumin 4.4 4.8 Monoscreen POSITIVE A Discharge Plan Discharge Disposition: Home, Self-Care Date of Admission: 04/19/23 21:20 Attending Provider on Discharge: Ruma Parr Consulting Providers: Cy Steward Primary Care Provider: Provider,Not a Local Condition: Improved Anticipated Discharge Date/Time: 04/20/23 10:40 Discharge Medications: New acetaminophen 325 mg Tablet 650 mg PO Q4H PRNQty: 0 0RF clindamycin HCl 300 mg capsule 300 mg PO Q6H 13 Days Qty: 52 0RF Discharge Orders: Discharge Order (Routine); Ordered 04/20/23 Ordered By: Ruma Parr Additional Instructions: Off work until you see a PCP in clinic with LFTs. No strenuous activity or heavy lifting. Finish all your antibiotics as prescribed. Return to ER for difficulty breathing, severe RUQ pain, worsening throat/tonsillar pain, inability to eat soft foods or drink liquids, worsening fever. Activity Level: No strenuous activity Discharge Diet: Regular Follow Up Appointments: Provider,Not a Local [Primary Care Provider] - Forms: Work/School Release, [facility] Info Instructions
[2023-04-20] MEDS: dexAMETHasone 10 MG/ML inj IVP (10:56)
[2023-04-20] MEDS: SODIUM CHLORIDE 0.9 % (FLUSH) 10 ML SYRINGE 5 ML IVF (10:56)
--- NOTE | 2023-04-20 12:28 | PC.NURSE ---
Discharge - Pt alert, oriented, reserved, but cooperative to care. Up independent in room, tolerating RA and fluids. Pt able to eat turkey sandwich before discharge with no increase in pain. Pt denied SOB, nausea, dizziness. Reported pain as 5/10 which pt indicated at tolerable. Pt refused pain medication. VSS, afebrile. Pt discharged to home with significant other at approximately 1220.
== END 2023-04-20 12:20 | disposition home or self-care (01) ==
LOC: ED 18:19 → MEDSURG 21:21
PROVIDERS: Admitting Provider Family Medicine; Emergency Provider Emergency Medicine; Visit Provider Family Medicine
DX: B27.90 Infectious mononucleosis, unspecified without complication (principal); J36 Peritonsillar abscess; K75.9 Inflammatory liver disease, unspecified; R74.01 Elevation of levels of liver transaminase levels; D72.829 Elevated white blood cell count, unspecified; R59.0 Localized enlarged lymph nodes; R13.10 Dysphagia, unspecified; R49.0 Dysphonia; R53.83 Other fatigue
CPT/HCPCS: 36415; 70491; 80053; 80076; 85025; 86308; 96361; 96365; 96367; 96375; 99284; G0378; J0295; J0736; J1100; J1885; J7030; J7120; Q9967